=== PATIENT | female | born 1940 | race Caucasian/White ===

== ENCOUNTER 2017-05-28 19:05 | Inpatient (IN) | payer MEDICARE, OTHER ==
[~2017-05-28] VITALS: Ht 162.6 cm; Wt 68.5 kg
[~2017-05-28 19:05] MED LIST: ATRV10T PO; CLOP75TA PO; MECL-124 PO; SCOP1PAT TD; SCP1.5TD TD
--- NOTE | 2017-05-28 19:20 | ED Cough/URI ---
General Stated Complaint: R SIDE PAIN - KIDNEYS Source: patient Exam Limitations: no limitations History of Present Illness Date Seen by Provider: May 28, 2017 Time Seen by Provider: 19:17 Initial Comments To ER per private vehicle with reports of fever, urinary tract infection, right posterior chest pain. This began this morning. Temperature up to 101.9. She was seen at Dr. Thornton's clinic today for the fever. She was evaluated with urinalysis, lab work and a flu swab. States that the urinalysis showed sign of infection so she was started on Macrobid. She had a flu swab done which was negative. She reports a mild cough. Pain to the posterior right chest is worse with breathing but she does not feel short of breath. She denies any UTI symptoms such as urinary frequency or burning. Timing/Duration: constant Severity/Quality: moderate Associated Symptoms: fever/chills Allergies and Home Medications Allergies Coded Allergies: No Known Drug Allergies (Unverified , 07/26/09) Home Medications Atorvastatin Calcium 10 Mg Tablet, 0.5 EACH PO DAILY, (Reported) Clopidogrel Bisulfate 75 Mg Tablet, 1 EACH PO DAILY, (Reported) Scopolamine 1.5 Mg Patch, 1 EA TD Q72H, (Reported) Constitutional: see HPI, chills, fever EENTM: see HPI Respiratory: see HPI, cough (minor), No short of breath, other (pleurodynia) Genitourinary: no symptoms reported Musculoskeletal: no symptoms reported Skin: no symptoms reported Psychiatric/Neurological: No Symptoms Reported Hematologic/Lymphatic: No Symptoms Reported Past Aawzlde-Yzqjre-Oucpkz Hx Patient Social History Recent Foreign Travel: No Contact w/Someone Who Travel: No Immunizations Up To Date Date of Influenza Vaccine: Jan 11, 2011 Reproductive System Hx Reproductive Disorders: No Physical Exam Vital Signs Vital Signs - First Documented 05/28/17 19:09 Temp 96.8 Pulse 93 Resp 18 B/P (MAP) 115/62 (79) Pulse Ox 95 O2 Delivery Room Air Capillary Refill : General Appearance: WD/WN, no apparent distress, other (does appear to be having quite a bit of pain with inspiration) HEENT: PERRL/EOMI, normal ENT inspection Neck: non-tender, full range of motion Respiratory: lungs clear, no respiratory distress, no accessory muscle use, No wheezing Cardiovascular: regular rate, rhythm, no murmur Gastrointestinal: normal bowel sounds, non tender, soft Neurologic/Psychiatric: alert, normal mood/affect, oriented x 3 Skin: normal color, warm/dry Progress/Results/Core Measures Suspected Sepsis SIRS Temperature: Pulse: Respiratory Rate: Laboratory Tests 05/28/17 19:10: White Blood Count 14.8H Blood Pressure / Mean: Laboratory Tests 05/28/17 19:10: Creatinine 1.02, Platelet Count 178, Total Bilirubin 0.8 Results/Orders Lab Results Laboratory Tests Test 05/28/17 19:10 05/28/17 19:37 Range/Units White Blood Count 14.8 H 4.3-11.0 10^3/uL Red Blood Count 3.74 L 4.35-5.85 10^6/uL Hemoglobin 11.9 11.5-16.0 G/DL Hematocrit 35 35-52 % Mean Corpuscular Volume 93 80-99 FL Mean Corpuscular Hemoglobin 32 25-34 PG Mean Corpuscular Hemoglobin Concent 34 32-36 G/DL Red Cell Distribution Width 13.5 10.0-14.5 % Platelet Count 178 130-400 10^3/uL Mean Platelet Volume 10.9 H 7.4-10.4 FL Neutrophils (%) (Auto) 88 H 42-75 % Lymphocytes (%) (Auto) 5 L 12-44 % Monocytes (%) (Auto) 7 0-12 % Eosinophils (%) (Auto) 0 0-10 % Basophils (%) (Auto) 0 0-10 % Neutrophils # (Auto) 12.9 H 1.8-7.8 X 10^3 Lymphocytes # (Auto) 0.8 L 1.0-4.0 X 10^3 Monocytes # (Auto) 1.0 0.0-1.0 X 10^3 Eosinophils # (Auto) 0.0 0.0-0.3 10^3/uL Basophils # (Auto) 0.0 0.0-0.1 10^3/uL Neutrophils % (Manual) 88 % Lymphocytes % (Manual) 4 % Monocytes % (Manual) 4 % Eosinophils % (Manual) 0 % Basophils % (Manual) 0 % Band Neutrophils 4 % Blood Morphology Comment NORMAL Sodium Level 128 L 135-145 MMOL/L Potassium Level 4.3 3.6-5.0 MMOL/L Chloride Level 97 L 98-107 MMOL/L Carbon Dioxide Level 18 L 21-32 MMOL/L Anion Gap 13 5-14 MMOL/L Blood Urea Nitrogen 14 7-18 MG/DL Creatinine 1.02 0.60-1.30 MG/DL Estimat Glomerular Filtration Rate 53 BUN/Creatinine Ratio 14 Glucose Level 159 H 70-105 MG/DL Calcium Level 8.9 8.5-10.1 MG/DL Total Bilirubin 0.8 0.1-1.0 MG/DL Aspartate Amino Transf (AST/SGOT) 43 H 5-34 U/L Alanine Aminotransferase (ALT/SGPT) 50 0-55 U/L Alkaline Phosphatase 84 40-136 U/L Total Protein 6.7 6.4-8.2 GM/DL Albumin 3.6 3.2-4.5 GM/DL Urine Color YELLOW Urine Clarity CLEAR Urine pH 5 5-9 Urine Specific [place] 1.020 1.016-1.022 Urine Protein 3+ H NEGATIVE Urine Glucose (UA) NEGATIVE NEGATIVE Urine Ketones 2+ H NEGATIVE Urine Nitrite NEGATIVE NEGATIVE Urine Bilirubin NEGATIVE NEGATIVE Urine Urobilinogen NORMAL NORMAL MG/DL Urine Leukocyte Esterase 1+ H NEGATIVE Urine RBC (Auto) 1+ H NEGATIVE Urine RBC RARE /HPF Urine WBC 2-5 /HPF Urine Squamous Epithelial Cells 2-5 /HPF Urine Crystals NONE /LPF Urine Bacteria FEW H /HPF Urine Casts PRESENT /LPF Urine Coarse Granular Casts 10-25 H /LPF Urine Mucus NEGATIVE /LPF Urine Culture Indicated NO My Orders Orders - TOMASZ BROUSSARD APRN Cbc With Automated Diff (05/28/17 19:16) Comprehensive Metabolic Panel (05/28/17 19:16) Ua Culture If Indicated (05/28/17 19:16) Saline Lock/Iv-Start (05/28/17 19:16) Ns Iv 500 Ml (Sodium Chloride 0.9%) (05/28/17 19:30) Chest 1 View, Ap/Pa Only (05/28/17 19:21) Manual Differential (05/28/17 19:10) Iohexol Injection (Omnipaque 350 Mg/Ml 1 (05/28/17 20:00) Ns (Ivpb) (Sodium Chloride 0.9%) (05/28/17 20:00) Pharmacy Communication (Pharmacy Communi (05/28/17 19:49) Ct Kami Chest/Noang Abd-Pelv W (05/28/17 19:16) Blood Culture (05/28/17 20:15) Lactic Acid Analyzer (05/28/17 20:15) Ketorolac Injection (Toradol Injection) (05/28/17 20:30) Ketorolac Injection (Toradol Injection) (05/28/17 20:25) Medications Given in ED Current Medications Medications Dose Ordered Sig/Mark Route Start Time Stop Time Status Last Admin Dose Admin Iohexol 150 ml ONCE ONCE IV 05/28/17 20:00 05/28/17 20:01 DC 05/28/17 19:57 150 ML Sodium Chloride 250 ml ONCE ONCE IV 05/28/17 20:00 05/28/17 20:01 DC 05/28/17 19:58 80 ML Vital Signs/I&O Vital Sign - Last 12Hours 05/28/17 19:09 Temp 96.8 Pulse 93 Resp 18 B/P (MAP) 115/62 (79) Pulse Ox 95 O2 Delivery Room Air Capillary Refill : Departure Communication (Admissions) Time/Spoke to Admitting Phy: 20:34 Communication I discussed the case with Dr. Thornton. She agrees to admit the patient for IV fluids, Rocephin and Zithromax can be used given the absence of recent broad- spectrum antibiotic use Impression Impression: Primary Impression: Right lower lobe pneumonia Disposition: ADMITTED INPATIENT Condition: Stable Admissions Decision to Admit Reason: Admit from ER (General) Decision to Admit/Date: May 28, 2017 Time/Decision to Admit Time: 20:15 Departure-Patient Inst. Referrals: HERNAN THORNTON DO (PCP/Family) Primary Care Physician TOMASZ BROUSSARD APRN May 28, 2017 19:20
[2017-05-28 19:21] LABS: BASOPHILS % (AUTO) 0 % (0-10); EOSINOPHILS % (AUTO) 0 % (0-10); HEMATOCRIT 35 % (35-52); HEMOGLOBIN 11.9 G/DL (11.5-16.0); LYMPHOCYTES # (AUTO) 0.8 X 10^3 (1.0-4.0); LYMPHOCYTES % (AUTO) 5 % (12-44); MEAN CORPUSCULAR HEMOGLOBIN 32 PG (25-34); MEAN CORPUSCULAR HGB CONC 34 G/DL (32-36); MEAN CORPUSCULAR VOLUME 93 FL (80-99); MEAN PLATELET VOLUME 10.9 FL (7.4-10.4); MONOCYTES % (AUTO) 7 % (0-12); NEUTROPHILS # (AUTO) 12.9 X 10^3 (1.8-7.8); NEUTROPHILS % (AUTO) 88 % (42-75); PLATELET COUNT 178 10^3/uL (130-400); RED BLOOD COUNT 3.74 10^6/uL (4.35-5.85); RED CELL DISTRIBUTION WIDTH 13.5 % (10.0-14.5); WHITE BLOOD COUNT 14.8 10^3/uL (4.3-11.0)
[2017-05-28] MEDS ORDERED: NS IV 500 ML 500 ML IV SCH (19:30)
[2017-05-28 19:41] LABS: ALBUMIN 3.6 GM/DL (3.2-4.5); BILIRUBIN,TOTAL 0.8 MG/DL (0.1-1.0); CALCIUM 8.9 MG/DL (8.5-10.1); CREATININE SERUM 1.02 MG/DL (0.60-1.30); POTASSIUM 4.3 MMOL/L (3.6-5.0); TOTAL PROTEIN 6.7 GM/DL (6.4-8.2)
[2017-05-28 19:46] LABS: BILIRUBIN,URINE NEGATIVE (NEGATIVE); CLARITY,URINE CLEAR; COLOR,URINE YELLOW; GLUCOSE, URINE (UA) NEGATIVE (NEGATIVE); KETONES,URINE 2+ (NEGATIVE); LEUKOCYTE ESTERASE ,URINE 1+ (NEGATIVE); NITRITE,URINE NEGATIVE (NEGATIVE); PH,URINE 5 (5-9); PROTEIN,URINE 3+ (NEGATIVE); UROBILINOGEN,URINE NORMAL (NORMAL)
[2017-05-28 19:50] LABS: BAND NEUTROPHILS 4 %; BASOPHILS % (MANUAL) 0 %; EOSINOPHILS % (MANUAL) 0 %; LYMPHOCYTES % (MANUAL) 4 %; MONOCYTES % (MANUAL) 4 %; NEUTROPHILS % (MANUAL) 88 %; RBC MORPH NORMAL
[2017-05-28] MEDS ORDERED: IOHEXOL 350 MG/ML 150 ML (OMNIPAQUE 350) VIAL IV ONE (20:00)
[2017-05-28] MEDS ORDERED: NS 250 ML (IVPB) BAG IV ONE (20:00)
[2017-05-28 20:01] LABS: BACTERIA,URINE FEW /HPF; RBC,URINE RARE /HPF
--- NOTE | 2017-05-28 20:01 | Diagnostic Imaging Report ---
INDICATION: Fever COMPARISON: 10/17/2011 FINDINGS: Single frontal view of the chest is obtained. Heart size is normal. The pulmonary vessels appear unremarkable. There is moderate infiltrate in the medial right lower lobe. There may be a small right pleural effusion. The left lung appears clear. IMPRESSION: Right lower lobe pneumonia with possible small effusion. Short-term followup study is recommended to document resolution. Dictated by: Dictated on workstation # [id number]
--- NOTE | 2017-05-28 20:20 | Diagnostic Imaging Report ---
INDICATION: Fever. Right lower chest pain. Short of air. Abdominal pain Images through the chest and abdomen were obtained after the administration of IV contrast. 3-D reconstructions were made for the CT angiography of the chest. There is a consolidated infiltrate seen in the right upper lobe medially. The right lower lobe and the left lung are clear. There is no effusion or pneumothorax. There is no aortic dissection. There is no pulmonary embolus. The gallbladder is absent. The liver and bile ducts are normal. The spleen, pancreas and adrenals are normal. There is a 5.6 cm cyst on the right kidney. The left kidney is normal. The ureters and bladder are normal. No acute bowel abnormality is seen. There is no free intraperitoneal air or fluid. IMPRESSION: CT angiography of the chest shows a right lung infiltrate. Recommend followup for clearing. There is no pulmonary embolus. CT of the abdomen and pelvis shows no acute abnormality. Dictated by: Dictated on workstation # [id number]
[2017-05-28] MEDS ORDERED: KETOROLAC 30 MG/ML VIAL ONE (20:25)
[2017-05-28] MEDS ORDERED: KETOROLAC 30 MG/ML VIAL IVP ONE (20:30)
[2017-05-28] MEDS ORDERED: fentaNYL INJECTION 100 MCG/2 ML AMP IVP ONE (20:45)
[2017-05-28] MEDS ORDERED: cefTRIAXone INJECTION 1,000 MG in NS (IVPB) 50 ML IV ONE (20:45)
[2017-05-28] MEDS ORDERED: KETOROLAC 15 MG/ML VIAL IV PRN (22:00)
[2017-05-28] MEDS ORDERED: ONDANSETRON 4 MG/2 ML (SDV) Z0FRAN IV PRN (22:00)
[2017-05-28] MEDS: NS IV 1000 ML 1,000 ML IV SCH (22:14)
[2017-05-28] MEDS ORDERED: AZITHROMYCIN 500 MG/NS 250 ML IVPB IV ONE ×2 (22:15)
[2017-05-28] MEDS ORDERED: CATHETER FLUSH 10 ML SYR IV PRN (22:15)
[2017-05-28] MEDS ORDERED: RT-ALBUTEROL/IPRATROPIUM 3 ML (DUONEB) VIAL INH PRN (22:45)
[2017-05-29] VITALS: BP 106/54
[2017-05-29 04:00] VITALS: BP 115/63
[2017-05-29] MEDS: CATHETER FLUSH 10 ML SYR IV SCH ×3 (04:34→20:47)
[2017-05-29] MEDS: NS IV 1000 ML 1,000 ML IV SCH ×2 (06:21→07:45)
[2017-05-29 06:33] LABS: BASOPHILS % (AUTO) 0 % (0-10); EOSINOPHILS % (AUTO) 0 % (0-10); HEMATOCRIT 32 % (35-52); HEMOGLOBIN 10.5 G/DL (11.5-16.0); LYMPHOCYTES # (AUTO) 0.9 X 10^3 (1.0-4.0); LYMPHOCYTES % (AUTO) 7 % (12-44); MEAN CORPUSCULAR HEMOGLOBIN 31 PG (25-34); MEAN CORPUSCULAR HGB CONC 33 G/DL (32-36); MEAN CORPUSCULAR VOLUME 94 FL (80-99); MEAN PLATELET VOLUME 11.6 FL (7.4-10.4); MONOCYTES # (AUTO) 0.8 X 10^3 (0.0-1.0); MONOCYTES % (AUTO) 6 % (0-12); NEUTROPHILS # (AUTO) 11.1 X 10^3 (1.8-7.8); NEUTROPHILS % (AUTO) 86 % (42-75); PLATELET COUNT 157 10^3/uL (130-400); RED BLOOD COUNT 3.39 10^6/uL (4.35-5.85); RED CELL DISTRIBUTION WIDTH 13.7 % (10.0-14.5); WHITE BLOOD COUNT 12.8 10^3/uL (4.3-11.0)
[2017-05-29] MEDS: RT-ALBUTEROL/IPRATROPIUM 3 ML (DUONEB) VIAL INH SCH ×4 (06:41→19:29)
[2017-05-29 06:53] LABS: BUN/CREATININE RATIO 18; CALCIUM 8.2 MG/DL (8.5-10.1); CARBON DIOXIDE 22 MMOL/L (21-32); CHLORIDE 101 MMOL/L (98-107); CREATININE SERUM 0.82 MG/DL (0.60-1.30); GFR ESTIMATED > 60; GLUCOSE 92 MG/DL (70-105); POTASSIUM 3.8 MMOL/L (3.6-5.0); SODIUM 131 MMOL/L (135-145)
[2017-05-29 08:00] VITALS: BP 99/55
[2017-05-29] MEDS ORDERED: ASPI-808 PO (08:03)
[2017-05-29] MEDS ORDERED: CHOL10007 PO (08:03)
[2017-05-29] MEDS ORDERED: ATOR10TA66 PO (08:03)
[2017-05-29] MEDS ORDERED: OMEG-109 PO (08:03)
[2017-05-29] MEDS ORDERED: CALC-794 PO (08:03)
[2017-05-29] MEDS ORDERED: L. A1CAP11 PO (08:04)
[2017-05-29] MEDS: AZITHROMYCIN 250 MG TAB (ZITHROMAX) PO SCH (08:17)
[2017-05-29] MEDS ORDERED: CALC-697 PO (08:21)
[2017-05-29 12:00] VITALS: BP 101/54
--- NOTE | 2017-05-29 14:25 | History & Physicial ---
History of Present Illness History of Present Illness Reason for visit/HPI This is a 76 year old female who was seen at my office with fever and fatigue. She was also having some right flank pain. Influenza was negative. She was found to have a UTI and bloodwork revealed an elevated WBC count of 12,000. Her right sided flank pain worsened and was actually radiating to her right lower abdomen so she presented to the emergency room for evaluation. She was found to have a Right lower lobe infiltrate and it was decided to admit her for evaluation and treatment. Date of Admission May 28, 2017 at 20:32 Date Seen by Provider: May 29, 2017 Time Seen by Provider: 14:20 I consulted on this patient on 05/29/17 14:20 Attending Physician Emily Thornton DO Admitting Physician Emily Thornton DO Consult Allergies and Home Medications Allergies Coded Allergies: No Known Drug Allergies (Unverified , 07/26/09) Home Medications Aspirin 325 Mg Tablet, 325 MG PO DAILY, (Reported) Atorvastatin Calcium 10 Mg Tablet, 5 MG PO DAILY, (Reported) TAKES 1/2 (10MG) TABLET Calcium Carbonate/Vitamin D3 1 Each Tablet, 1 TAB PO DAILY, (Reported) Cholecalciferol (Vitamin D3) 1,000 Unit Capsule, 1,000 UNIT PO MoWeFr, (Reported ) L. Acidophilus/Pectin, [place] 1 Each Capsule, 1 CAP PO DAILY, (Reported) [place]-3 Fatty Acids/Fish Oil 1 Each Capsule, 2,400 MG PO DAILY, (Reported) Past Brlczbn-Nhftlk-Aumkho Hx Patient Social History Alcohol Use: Denies Use Recreational Drug Use: No Smoking Status: Never a Smoker Physical Abuse Screen: No Sexual Abuse: No Recent Foreign Travel: No Contact w/other who traveled: No Recent Hopitalizations: No Recent Infectious Disease Expo: No Immunizations Up To Date Pediatric: No Date of Pneumonia Vaccine: Jan 14, 2016 Date of Influenza Vaccine: Jan 12, 2017 Seasonal Allergies Seasonal Allergies: No Surgeries Yes Eye Surgery, Tubal Ligation Respiratory No Cardiovascular No Neurological No Reproductive System Hx Reproductive Disorders: No Genitourinary Yes UTI-Chronic Gastrointestinal Yes Gall Bladder Disease Musculoskeletal No Endocrine History of Endocrine Disorders: No HEENT History of HEENT Disorders: Yes HEENT Disorders: Cataract Loss of Vision: Bilateral Hearing Impairment: Denies Cancer No Psychosocial History of Psychiatric Problem: No Integumentary History of Skin or Integumenta: No Blood Transfusions History of Blood Disorders: No Adverse Reaction to a Blood Tr: No Family Medical History Family Hx: Patient reports no known family medical history. Constitutional: fever, weakness EENTM: nose congestion Respiratory: No no symptoms reported, No see HPI, No cough, No dyspnea on exertion, No hemoptysis, No orthopnea, No phlegm, No short of breath, No stridor , No wheezing, No other Cardiovascular: No no symptoms reported, No see HPI, No chest pain, No edema, No Hx of Intervention, No palpitations, No syncope, No vascular heart diseas, No other Gastrointestinal: RUQ (and flank), RLQ Musculoskeletal: back pain (right flank area), muscle weakness Skin: No no symptoms reported, No see HPI, No change in color, No change in hair/nails, No dryness, No hx of skin cancer, No lesions, No lumps, No pruritus , No rash, No other Psychiatric/Neurological: Weakness Physical Exam Vital Signs Vital Signs - First Documented 05/28/17 05/28/17 19:09 21:12 Temp 96.8 Pulse 93 Resp 18 B/P (MAP) 115/62 (79) Pulse Ox 95 O2 Delivery Room Air O2 Flow Rate 2.00 Capillary Refill : Less Than 3 Seconds General Appearance: No Apparent Distress HEENT: Normal ENT Inspection Neck: Supple Respiratory: Lungs Clear Cardiovascular: Regular Rate, Rhythm Gastrointestinal: Normal Bowel Sounds, Non Tender, Soft Rectal: Deferred Back: No CVA Tenderness Extremity: Non Tender, No Calf Tenderness, No Pedal Edema Neurologic/Psychiatric: Alert, Oriented x3 Skin: Normal Color, Warm/Dry Comments labLaboratory Tests 05/28/17 19:10: White Blood Count 14.8H, Red Blood Count 3.74L, Hemoglobin 11.9, Hematocrit 35, Mean Corpuscular Volume 93, Mean Corpuscular Hemoglobin 32, Mean Corpuscular Hemoglobin Concent 34, Red Cell Distribution Width 13.5, Platelet Count 178, Mean Platelet Volume 10.9H, Neutrophils (%) (Auto) 88H, Lymphocytes (%) (Auto) 5L, Monocytes (%) (Auto) 7, Eosinophils (%) (Auto) 0, Basophils (%) (Auto) 0, Neutrophils # (Auto) 12.9H, Lymphocytes # (Auto) 0.8L, Monocytes # (Auto) 1.0, Eosinophils # (Auto) 0.0, Basophils # (Auto) 0.0, Neutrophils % (Manual) 88, Lymphocytes % (Manual) 4, Monocytes % (Manual) 4, Eosinophils % (Manual) 0, Basophils % (Manual) 0, Band Neutrophils 4, Blood Morphology Comment NORMAL, Sodium Level 128L, Potassium Level 4.3, Chloride Level 97L, Carbon Dioxide Level 18L, Anion Gap 13, Blood Urea Nitrogen 14, Creatinine 1.02, Estimat Glomerular Filtration Rate 53, BUN/Creatinine Ratio 14, Glucose Level 159H, Calcium Level 8.9, Total Bilirubin 0.8, Aspartate Amino Transf (AST/SGOT) 43H, Alanine Aminotransferase (ALT/SGPT) 50, Alkaline Phosphatase 84, Total Protein 6.7, Albumin 3.6 05/28/17 19:37: Urine Color YELLOW, Urine Clarity CLEAR, Urine pH 5, Urine Specific [place] 1.020, Urine Protein 3+H, Urine Glucose (UA) NEGATIVE, Urine Ketones 2+H, Urine Nitrite NEGATIVE, Urine Bilirubin NEGATIVE, Urine Urobilinogen NORMAL, Urine Leukocyte Esterase 1+H, Urine RBC (Auto) 1+H, Urine RBC RARE, Urine WBC 2-5, Urine Squamous Epithelial Cells 2-5, Urine Crystals NONE, Urine Bacteria FEWH, Urine Casts PRESENT, Urine Coarse Granular Casts 10-25H, Urine Mucus NEGATIVE, Urine Culture Indicated NO 05/28/17 20:41: Lactic Acid Level 1.69 05/29/17 05:19: White Blood Count 12.8H, Red Blood Count 3.39L, Hemoglobin 10.5L, Hematocrit 32L , Mean Corpuscular Volume 94, Mean Corpuscular Hemoglobin 31, Mean Corpuscular Hemoglobin Concent 33, Red Cell Distribution Width 13.7, Platelet Count 157, Mean Platelet Volume 11.6H, Neutrophils (%) (Auto) 86H, Lymphocytes (%) (Auto) 7L, Monocytes (%) (Auto) 6, Eosinophils (%) (Auto) 0, Basophils (%) (Auto) 0, Neutrophils # (Auto) 11.1H, Lymphocytes # (Auto) 0.9L, Monocytes # (Auto) 0.8, Eosinophils # (Auto) 0.0, Basophils # (Auto) 0.0, Sodium Level 131L, Potassium Level 3.8, Chloride Level 101, Carbon Dioxide Level 22, Anion Gap 8, Blood Urea Nitrogen 15, Creatinine 0.82, Estimat Glomerular Filtration Rate > 60, BUN/ Creatinine Ratio 18, Glucose Level 92, Calcium Level 8.2L Microbiology 05/28/17 Blood Culture - Preliminary, Resulted Probable Strep Pneumoniae Assessment/Plan Assessment and Plan 1. Acute RLL Bacterial Pneumonia--will admit for IV rocephin, zithromax, SVNs 2. Acute UTI--rocephin as above Problems: Clinical Quality Measures DVT/VTE Risk/Contraindication: Risk Factor Score Per Nursin RFS Level Per Nursing on Admit: 3=High EMILY THORNTON DO May 29, 2017 14:25
[2017-05-29] MEDS ORDERED: FUROSEMIDE 40 MG/4 ML INJ (LASIX) IVP NR (14:30)
[2017-05-29] MEDS ORDERED: KCL 8 MEQ (MICRO K) TABLET PO NR (14:30)
--- OUTSIDE RECORDS SUMMARY | 2017-05-29 16:08 | XMS REPORT | Continuity of Care Document ---
Author Author [facility] Organization [facility] Address Unknown Phone Unavailable Allergies Active Description Code Type Severity Reaction Onset Reported/Identified Relationship to Patient Clinical Status Yes No Known Drug Allergies [id number] Drug Allergy Mild N/A 07/26/2009 Medications There is no data. Problems Date Dx Coded Attending Type Code Diagnosis Diagnosed By 09/09/2014 HERNAN FOREMAN DO Ot V76.12 11/23/2014 HERNAN FOREMAN DO S Ot 433.10 11/23/2014 HERNAN FOREMAN DO S Ot 433.30 12/26/2014 HERNAN FOREMAN DO S Ot 433.10 12/26/2014 HERNAN FOREMAN DO S Ot 433.30 07/19/2015 Ot G45.9 07/19/2015 Ot R42 08/03/2015 Ot G45.9 TRANSIENT CEREBRAL ISCHEMIC ATTACK, UNSP 08/03/2015 Ot R42 DIZZINESS AND GIDDINESS 08/29/2015 HERNAN FOREMAN DO Ot Z12.31 ENCNTR SCREEN MAMMOGRAM FOR MALIGNANT NE Procedures There is no data. Results There is no data. Encounters ACCT No. Visit Date/Time Discharge Status Pt. Type Provider Facility Loc./Unit Complaint [id number] 08/07/2015 08:52:00 08/07/2015 23:59:59 CLS Outpatient HERNAN FOREMAN DO S [facility] [id number] 10/31/2014 08:54:00 10/31/2014 23:59:59 CLS Outpatient CLAYTON FOREMAN DOLINE S [facility] [id number] 08/03/2014 10:20:00 08/03/2014 23:59:59 CLS Outpatient CLAYTON FOREMAN DOLINE S [facility] [id number] 10/27/2013 13:14:00 10/27/2013 23:59:59 CLS Outpatient [id number] 08/04/2013 08:21:00 08/04/2013 23:59:59 CLS Outpatient [id number] 07/27/2013 13:18:00 07/27/2013 23:59:59 CLS Outpatient [id number] 02/24/2013 13:17:00 02/24/2013 23:59:59 CLS Outpatient [id number] 10/26/2012 10:33:00 10/26/2012 23:59:59 CLS Outpatient [id number] 08/17/2012 08:04:00 08/17/2012 23:59:59 CLS Outpatient [id number] 07/13/2015 09:42:00 Document Registration
[2017-05-29] MEDS: HYDROcodone/APAP 5 MG/325 MG (LORTAB) TAB PO PRN ×2 (16:37→20:47)
[2017-05-29 16:46] VITALS: BP 112/56
[2017-05-29 19:08] VITALS: BP 93/53
[2017-05-29] MEDS: cefTRIAXone 1 GM/NS 50 ML IVPB IV SCH ×2 (20:00)
[2017-05-30 00:23] VITALS: BP 102/52
[2017-05-30 04:53] VITALS: BP 107/51
[2017-05-30] MEDS: CATHETER FLUSH 10 ML SYR IV SCH ×3 (05:24→20:27)
[2017-05-30 05:32] LABS: BASOPHILS % (AUTO) 0 % (0-10); EOSINOPHILS # (AUTO) 0.1 10^3/uL (0.0-0.3); EOSINOPHILS % (AUTO) 2 % (0-10); HEMATOCRIT 29 % (35-52); HEMOGLOBIN 9.7 G/DL (11.5-16.0); LYMPHOCYTES # (AUTO) 1.1 X 10^3 (1.0-4.0); LYMPHOCYTES % (AUTO) 13 % (12-44); MEAN CORPUSCULAR HEMOGLOBIN 31 PG (25-34); MEAN CORPUSCULAR HGB CONC 33 G/DL (32-36); MEAN CORPUSCULAR VOLUME 92 FL (80-99); MEAN PLATELET VOLUME 10.9 FL (7.4-10.4); MONOCYTES # (AUTO) 0.7 X 10^3 (0.0-1.0); MONOCYTES % (AUTO) 9 % (0-12); NEUTROPHILS # (AUTO) 6.1 X 10^3 (1.8-7.8); NEUTROPHILS % (AUTO) 76 % (42-75); PLATELET COUNT 196 10^3/uL (130-400); RED BLOOD COUNT 3.14 10^6/uL (4.35-5.85); RED CELL DISTRIBUTION WIDTH 13.7 % (10.0-14.5)
[2017-05-30 05:58] LABS: ALANINE AMINOTRANSFERASE 60 U/L (0-55); ALKALINE PHOSPHATASE 79 U/L (40-136); BILIRUBIN,TOTAL 0.4 MG/DL (0.1-1.0); BUN/CREATININE RATIO 14; CARBON DIOXIDE 19 MMOL/L (21-32); CHLORIDE 101 MMOL/L (98-107); CREATININE SERUM 0.77 MG/DL (0.60-1.30); GFR ESTIMATED > 60; GLUCOSE 97 MG/DL (70-105); SODIUM 131 MMOL/L (135-145); TOTAL PROTEIN 5.3 GM/DL (6.4-8.2)
[2017-05-30] MEDS: AZITHROMYCIN 250 MG TAB (ZITHROMAX) PO SCH (08:05)
[2017-05-30 08:21] VITALS: BP 122/58
[2017-05-30] MEDS: RT-ALBUTEROL/IPRATROPIUM 3 ML (DUONEB) VIAL INH SCH ×4 (09:49→19:13)
--- NOTE | 2017-05-30 10:00 | Progress Note-Hospitalist ---
Subjective HPI/CC On Admission Date Seen by Provider: May 30, 2017 Time Seen by Provider: 08:30 Subjective/Events-last exam Patient complains of right-sided pain that's down near her pelvis that radiates up to the right shoulder. It is positional and she has concerns that this might be related to a right renal cyst that was found incidentally on CT. She notes that it improved when she put a towel underneath her lower back. I discussed with her that her blood cultures did come up positive for Streptococcus probable pneumonia. She is on day 2 Rocephin and Zithromax. Review of Systems Pulmonary: Cough Musculoskeletal: back pain Objective Exam Vital Signs Vital Signs Date Time Temp Pulse Resp B/P (MAP) Pulse Ox O2 Delivery O2 Flow Rate FiO2 05/28/17 19:09 96.8 93 18 115/62 (79) 95 Room Air 05/28/17 21:12 2.00 Capillary Refill : Less Than 3 Seconds General Appearance: No Apparent Distress, WD/WN HEENT: Normal ENT Inspection Neck: Supple Respiratory: Chest Non Tender, No Accessory Muscle Use, No Respiratory Distress , Crackles (Right lung) Cardiovascular: Regular Rate, Rhythm, No Gallop, No Murmur, Normal Peripheral Pulses Gastrointestinal: Normal Bowel Sounds, No Organomegaly, No Pulsatile Mass, Non Tender, Soft Rectal: Deferred Back: Normal Inspection, No CVA Tenderness, No Vertebral Tenderness Extremity: No Calf Tenderness, No Pedal Edema Neurologic/Psychiatric: Alert, Oriented x3, No Motor/Sensory Deficits Skin: Normal Color, Warm/Dry Lymphatic: No Adenopathy Results/Procedures Lab Laboratory Tests 05/30/17 05:25 Assessment/Plan Assessment and Plan Assess & Plan/Chief Complaint 1. Right upper lobe pneumonia on CT-most likely Streptococcus pneumonia with positive blood cultures day number 2 Zithromax and Rocephin 2. Right sided back discomfort most likely musculoskeletal. On exam it is where the upper rib cage is rubbing on the posterior superior iliac crest of the pelvis 3. Incidental 5.6 cm right renal cyst 4. Mild anemia with a hemoglobin of 9.7 of uncertain etiology we'll Hemoccult stools CHANTELLE LLANES MD May 30, 2017 10:00
[2017-05-30] MEDS: ACETAMINOPHEN 500 MG TAB (TYLENOL) PO PRN (10:46)
[2017-05-30 12:00] VITALS: BP 102/50
[2017-05-30 16:59] VITALS: BP 116/58
[2017-05-30] MEDS: ACETAMINOPHEN 325 MG TABLET/CAPLET (TYLENOL) PO PRN (20:21)
[2017-05-30] MEDS: cefTRIAXone 1 GM/NS 50 ML IVPB IV SCH ×2 (20:21)
[2017-05-30] MEDS: ATORVASTATIN 10 MG (LIPITOR) TABLET PO SCH (20:21)
[2017-05-31] VITALS: BP 101/54
[2017-05-31] MEDS: CATHETER FLUSH 10 ML SYR IV SCH ×3 (06:11→21:56)
[2017-05-31] MEDS: RT-ALBUTEROL/IPRATROPIUM 3 ML (DUONEB) VIAL INH SCH ×3 (07:45→18:34)
[2017-05-31 07:54] VITALS: BP 101/54
[2017-05-31] MEDS: AZITHROMYCIN 250 MG TAB (ZITHROMAX) PO SCH (07:56)
[2017-05-31] MEDS: ASPIRIN 325 MG (5 GR) TABLET PO SCH (07:56)
[2017-05-31 08:10] VITALS: BP 138/65
--- NOTE | 2017-05-31 10:27 | Progress Note-Hospitalist ---
Subjective HPI/CC On Admission Date Seen by Provider: May 31, 2017 Time Seen by Provider: 10:00 Subjective/Events-last exam Zara continues to have some right lower back pain when she lays down flat. Otherwise she seems to be looking and feeling better. She had a low-grade temperature of 99 last night. She has a cough that is not productive. Review of Systems Pulmonary: Cough Musculoskeletal: back pain Objective Exam Vital Signs Vital Signs Date Time Temp Pulse Resp B/P (MAP) Pulse Ox O2 Delivery O2 Flow Rate FiO2 05/28/17 19:09 96.8 93 18 115/62 (79) 95 Room Air 05/28/17 21:12 2.00 05/31/17 07:54 21 Capillary Refill : Less Than 3 Seconds General Appearance: No Apparent Distress, WD/WN HEENT: Normal ENT Inspection Neck: Supple Respiratory: No Accessory Muscle Use, No Respiratory Distress, Crackles (Right lower base) Cardiovascular: Regular Rate, Rhythm, No Gallop Gastrointestinal: Non Tender, Soft Back: No CVA Tenderness Extremity: No Calf Tenderness Neurologic/Psychiatric: Alert, Oriented x3, No Motor/Sensory Deficits, Normal Mood/Affect Assessment/Plan Assessment and Plan Assess & Plan/Chief Complaint 1. Right upper lobe pneumonia on CT-most likely Streptococcus pneumonia with positive blood cultures day number 3 Zithromax and Rocephin-most likely can be discharged tomorrow 2. Right sided back discomfort most likely musculoskeletal. On exam it is where the upper rib cage is rubbing on the posterior superior iliac crest of the pelvis 3. Incidental 5.6 cm right renal cyst 4. Mild anemia with a hemoglobin of 9.7 of uncertain etiology we'll Hemoccult stools CHANTELLE LLANES MD May 31, 2017 10:27
[2017-05-31] MEDS: ACETAMINOPHEN 500 MG TAB (TYLENOL) PO PRN (14:47)
[2017-05-31 15:24] VITALS: BP 103/54
[2017-05-31 19:09] VITALS: BP 112/56
[2017-05-31] MEDS: cefTRIAXone 1 GM/NS 50 ML IVPB IV SCH ×2 (19:54)
[2017-05-31] MEDS: ACETAMINOPHEN 325 MG TABLET/CAPLET (TYLENOL) PO PRN (21:56)
[2017-05-31] MEDS: ATORVASTATIN 10 MG (LIPITOR) TABLET PO SCH (21:56)
[2017-06-01 00:17] VITALS: BP 107/54
[2017-06-01 04:11] VITALS: BP 98/64
[2017-06-01] MEDS: CATHETER FLUSH 10 ML SYR IV SCH ×2 (05:53→13:09)
[2017-06-01 08:21] VITALS: BP 143/67
[2017-06-01] MEDS: AZITHROMYCIN 250 MG TAB (ZITHROMAX) PO SCH (08:39)
[2017-06-01] MEDS: ASPIRIN 325 MG (5 GR) TABLET PO SCH (08:40)
[2017-06-01] MEDS: RT-ALBUTEROL/IPRATROPIUM 3 ML (DUONEB) VIAL INH SCH (09:28)
[2017-06-01] MEDS ORDERED: CEFD300C3 PO (12:46)
[2017-06-01] MEDS ORDERED: IPRA3AMP INH (12:46)
--- NOTE | 2017-06-01 12:50 | Discharge Inst-Simple/Standard ---
Discharge Inst-Standard Discharge Medications New, Converted or Re-Newed RX: Transmitted to Pharmacy Patient Instructions/Follow Up Plan of Care/Instructions/FU: Fwup 1 week Activity as Tolerated: Yes Discharge Diet: No Restrictions HERNAN FOREMAN DO Jun 01, 2017 12:50 pm
[2017-06-01] MEDS: ACETAMINOPHEN 500 MG TAB (TYLENOL) PO PRN (14:27)
--- NOTE | 2017-06-01 19:48 | Discharge Summary ---
Diagnosis/Chief Complaint Date of Admission May 28, 2017 at 20:32 Date of Discharge Jun 01, 2017 at 14:50 Discharge Date: Jun 01, 2017 Admission Diagnosis Admission Diagnosis 1. Acute RLL Bacterial Pneumonia--will admit for IV rocephin, zithromax, SVNs 2. Acute UTI--rocephin as above Discharge Diagnosis 1. Acute RLL Streptococcal pneumonia with SIRS and Hypoxia--improved 2. Acute UTI 3. Acute Dehydration with Hyponatremia 4. Acute Anemia Reason Hospital Visit This is a 76 year old female who was seen at my office with fever and fatigue. She was also having some right flank pain. Influenza was negative. She was found to have a UTI and bloodwork revealed an elevated WBC count of 12,000. Her right sided flank pain worsened and was actually radiating to her right lower abdomen so she presented to the emergency room for evaluation. She was found to have a Right lower lobe infiltrate and it was decided to admit her for evaluation and treatment. Discharge Summary Hospital Course Hospital Course This is a 76 year old female who was seen at my office with fever and fatigue. She was also having some right flank pain. Influenza was negative. She was found to have a UTI and bloodwork revealed an elevated WBC count of 12,000. Her right sided flank pain worsened and was actually radiating to her right lower abdomen so she presented to the emergency room for evaluation. She was found to have a Right lower lobe infiltrate and it was decided to admit her for evaluation and treatment. She was admitted and started on rocephin, nebulizer treatments and oxygen. She was also given IVFs but felt more swollen and short of air the day after admission so the IVFs were heplocked and she was given IV lasix. Her blood cultures did grow out Steptococcal pneumonia. Her WBC count did come back to normal by the time of discharge and her energy and fever were much improved by discharge. She had no crackles on physical exam and her appetite was good and she had decreased her nebulizer treatments to BID. It was decided she could be discharged home on oral antibiotics with breathing treatments and acapella. She will follow up with me in 1 week. Labs Laboratory Tests 05/30/17 05:25: Red Blood Count 3.14L, Hemoglobin 9.7L, Hematocrit 29L, Mean Platelet Volume 10.9H, Neutrophils (%) (Auto) 76H, Sodium Level 131L, Carbon Dioxide Level 19L, Calcium Level 8.0L, Aspartate Amino Transf (AST/SGOT) 57H, Alanine Aminotransferase (ALT/SGPT) 60H, Total Protein 5.3L, Albumin 3.0L 05/31/17 07:20: Procedures None. Discharge Physical Examination Allergies: Coded Allergies: No Known Drug Allergies (Unverified , 07/26/09) Vitals & I&Os Vital Signs Date Time Temp Pulse Resp B/P (MAP) Pulse Ox O2 Delivery O2 Flow Rate FiO2 06/01/17 14:50 06/01/17 09:28 95 Room Air 06/01/17 08:21 99.8 77 18 05/31/17 07:54 21 05/30/17 04:53 2.00 General Appearance: Alert, Oriented X3, Cooperative Respiratory: Clear to Auscultation Cardiovascular: Regular Rate Abdominal: Normal Bowel Sounds, Soft, No Tenderness Extremities: No Clubbing, No Cyanosis, No Edema Skin: No Rashes Neuro: Normal Gait, Normal Speech Discharge Home Medications Reviewed and agree with Discharge Medication list on patient's Discharge Instruction sheet Instructions to Patient/Family Please see electronic discharge instructions given to patient. Clinical Quality Measures DVT/VTE Risk/Contraindication: Risk Factor Score Per Nursin RFS Level Per Nursing on Admit: 3=High HERNAN FOREMAN DO Jun 01, 2017 19:48
== END 2017-06-01 14:50 | disposition home or self-care (01) | DRG 194 ==
LOC: EDUNIT# 19:05 → ER 19:07 → 4TH 20:32
PROVIDERS: ADMIT Family Medicine; ATTEND Family Medicine
DX: J13 Pneumonia due to Streptococcus pneumoniae (principal); N39.0 Urinary tract infection, site not specified; R09.02 Hypoxemia; M54.9 Dorsalgia, unspecified; D64.9 Anemia, unspecified; E86.0 Dehydration; E87.1 Hypo-osmolality and hyponatremia
CPT/HCPCS: 36415; 71045; 71275; 74177; 80048; 80053; 81000; 82274; 83605; 85007; 85025; 85027; 87040; 94640; 94664; 94760; 96374; 96375

== ENCOUNTER → 2017-06-04 | Outpatient (CLI) | payer MEDICARE, OTHER ==
[~2017-06-04] MED LIST changes: +ASPI-808 PO; +ATOR10TA66 PO; +CALC-697 PO; +CALC-794 PO; +CEFD300C3 PO; +CHOL10007 PO; +IPRA3AMP INH; +L. A1CAP11 PO; +OMEG-109 PO
--- NOTE | 2017-06-04 12:18 | Diagnostic Imaging Report ---
INDICATION: Back pain. Three views of thoracic spine were obtained. FINDINGS: There is a right basal infiltrate and right pleural effusion. The alignment of the thoracic spine is normal. Vertebral body heights are well maintained. No fracture or traumatic subluxation. There are mild degenerative changes. IMPRESSION: Osteopenia and mild thoracic spondylosis otherwise unremarkable thoracic spine. Right base infiltrate and right pleural effusion. Dictated by: Dictated on workstation # [id number]
--- NOTE | 2017-06-04 13:22 | Diagnostic Imaging Report ---
INDICATION: Back pain. Three views were obtained. FINDINGS: Bones are osteopenic. Alignment is normal. Vertebral body heights are well maintained. There is some mild lower lumbar degenerative disc disease and hypertrophic degenerative facet disease. There is no spondylolysis or spondylolisthesis. No fractures are identified. IMPRESSION: Osteopenia with mild lower lumbar degenerative disc disease and hypertrophic degenerative facet disease. Dictated by: Dictated on workstation # [id number]
== END ==
LOC: RAD 11:42
PROVIDERS: ATTEND Family Medicine
DX: M51.36 Other intervertebral disc degeneration, lumbar region (principal); M47.814 Spondylosis without myelopathy or radiculopathy, thoracic region; M85.88 Other specified disorders of bone density and structure, other site; M89.38 Hypertrophy of bone, other site; J90 Pleural effusion, not elsewhere classified; R91.8 Other nonspecific abnormal finding of lung field
CPT/HCPCS: 72070; 72100

== ENCOUNTER → 2017-06-09 | Outpatient (CLI) | payer MEDICARE, OTHER ==
--- NOTE | 2017-06-09 19:02 | Diagnostic Imaging Report ---
INDICATION: Right flank pain. EXAM: Bilateral renal sonography is performed in the routine fashion. FINDINGS: The right kidney measures 12.3 x 4.5 x 4.9 cm. The left kidney measures 8.9 x 4.4 x 3.8 cm. There is a large cyst in the inferior pole of the right kidney, measuring 4.5 x 4.4 x 4.1 cm. This appears slightly larger than it did in 2010 where it measured 4.1 x 3.8 x 4.0 cm. The left kidney shows no focal lesion. There is no hydronephrosis on either side. Urinary bladder is grossly unremarkable with bilateral ureteral jets. IMPRESSION: Prominent cyst in the lower pole of the right kidney, slightly larger than the previous study of 07/27/2009. Otherwise unremarkable study. Dictated by: Dictated on workstation # [id number]
== END ==
LOC: RAD 10:47
PROVIDERS: ATTEND Family Medicine
DX: N28.1 Cyst of kidney, acquired (principal)
CPT/HCPCS: 76770

== ENCOUNTER → 2017-06-30 | Outpatient (CLI) | payer MEDICARE, OTHER ==
--- NOTE | 2017-06-30 15:51 | Diagnostic Imaging Report ---
EXAMINATION: PA and lateral chest at 10:29 a.m. INDICATION: Fever. FINDINGS: The prior chest exam of 05/28/2017 noted right lower lobe pneumonia/atelectasis with a small right pleural effusion. In the interval since the prior exam, the right lung base has been completely opacified by atelectasis/pneumonia and fluid. The right mid lung and right upper lung remain clear as does the left lung. There is still scar formation involving the right apex. The heart is stable in size. The mediastinum is not widened. The osseous structures are intact. IMPRESSION: 1. The appearance of the chest has worsened since the prior exam as the right lung base is now opacified by atelectasis/infiltrate and fluid. 2. There is no clear evidence for a neoplastic mass to account for the right lower lobe pneumonia/atelectasis and fluid. However, CT of the chest should be considered for further evaluation. Dictated by: Dictated on workstation # [id number]
== END ==
LOC: RAD 10:02
PROVIDERS: ATTEND Family Medicine
DX: J18.9 Pneumonia, unspecified organism (principal); R91.8 Other nonspecific abnormal finding of lung field
CPT/HCPCS: 71046

== ENCOUNTER → 2017-07-06 | Outpatient (CLI) | payer MEDICARE, OTHER ==
--- NOTE | 2017-07-06 12:35 | Diagnostic Imaging Report ---
PROCEDURE: CT chest without contrast. TECHNIQUE: Multiple contiguous axial images were obtained through the chest without the use of intravenous contrast. INDICATION: Cough and right-sided pneumonia, followup. Comparison is made with prior CT chest from 05/28/2017. No axillary lymphadenopathy is seen. Hilar and mediastinal evaluation is limited without intravenous contrast. No gross abnormality is seen. No pericardial fluid is identified. Patient has developed a moderate right-sided pleural effusion layering dependently posteriorly to a thickness of 2.6 cm. There has been significant improvement in the infiltrate identified in the medial aspect of the right upper lobe on prior exam. Only mild residual infiltrate remains. There appears to be some mild infiltrate or atelectasis in the right lower lobe with air bronchograms. Left lung is clear. The upper abdomen is unremarkable. IMPRESSION: 1. Significant improvement in right upper lobe pneumonia when compared with prior study from 05/28/2017. Mild infiltrate remains. The patient has developed some consolidative infiltrate in the right lower lobe since prior study. In addition, the patient has developed a moderate sized right pleural effusion. Continued followup to confirm clearing is recommended. Dictated by: Dictated on workstation # [id number]
== END ==
LOC: RAD 11:43
PROVIDERS: ATTEND Family Medicine
DX: J18.9 Pneumonia, unspecified organism (principal)
CPT/HCPCS: 71250

== ENCOUNTER → 2017-09-03 | Outpatient (CLI) | payer MEDICARE, OTHER ==
[2017-09-03] VITALS (10 sets, daily range): BP systolic 104–146; BP diastolic 53–79
[~2017-09-03] VITALS: Ht 162.6 cm; Wt 64.4 kg
[~2017-09-03] MED LIST changes: +LIDOCAINE 2% VISCOUS 15 ML UDC ONE; +LIDOCAINE 2% VISCOUS 15 ML UDC PO ONE; +MIDAZOLAM 5 MG/5 ML (VERSED) VIAL IV PRN; +MIDAZOLAM 5 MG/5 ML (VERSED) VIAL ONE; +MULT-351 PO; +NS IV 1000 ML 1,000 ML IV SCH; +NS IV 1000 ML 1,000 ML ONE; +fentaNYL INJECTION 100 MCG/2 ML AMP INJ PRN; +fentaNYL INJECTION 100 MCG/2 ML AMP ONE; +proPOfol 200 MG/20 ML (DIPRIVAN) VIAL IV ONE
[2017-09-03 08:01] LABS: HEMOGLOBIN 13.1 G/DL (11.5-16.0); MEAN PLATELET VOLUME 10.2 FL (7.4-10.4); RED BLOOD COUNT 4.27 10^6/uL (4.35-5.85); RED CELL DISTRIBUTION WIDTH 13.8 % (10.0-14.5); WHITE BLOOD COUNT 3.9 10^3/uL (4.3-11.0)
[2017-09-03 08:18] LABS: ALANINE AMINOTRANSFERASE 18 U/L (0-55); ALBUMIN 4.2 GM/DL (3.2-4.5); ALKALINE PHOSPHATASE 79 U/L (40-136); BILIRUBIN,TOTAL 0.7 MG/DL (0.1-1.0); BUN/CREATININE RATIO 20; CALCIUM 9.4 MG/DL (8.5-10.1); CARBON DIOXIDE 26 MMOL/L (21-32); CHLORIDE 105 MMOL/L (98-107); CREATININE SERUM 0.81 MG/DL (0.60-1.30); GFR ESTIMATED > 60; GLUCOSE 88 MG/DL (70-105); POTASSIUM 4.2 MMOL/L (3.6-5.0); SODIUM 140 MMOL/L (135-145)
[2017-09-03 08:51] LABS: PROTHROMBIN TIME PATIENT 13.1 SEC (12.2-14.7)
--- NOTE | 2017-09-03 10:30 | Anesthesia-General Post-Op ---
MAC Patient Condition Mental Status/LOC: Same as Preop Cardiovascular: Satisfactory Nausea/Vomiting: Absent Respiratory: Satisfactory Pain: Controlled Complications: Absent Post Op Complications Complications None Follow Up Care/Instructions Patient Instructions None needed. Anesthesiology Discharge Order Discharge Order Patient is doing well, no complaints, stable vital signs, no apparent adverse anesthesia problems. YESENIA FLOYD DO September 03, 2017 10:30
--- NOTE | 2017-09-03 10:30 | Anesthesia-Procedure Note ---
Procedures/Interventions Procedure Start/Stop/Diagnosis Date of Procedure: September 03, 2017 Start Time: 10:10 Referring Physician: Dr Delgado Preprocedural Diagnosis: Mitral Regurgitation Brief History Anesthesia Note ([id number]) Called to label coder for rescue sedation for JENISE. Pt already given versed 5 mg IV and Fentanyl 75 mcg IV prior to my arrival. Pt not sedated enough to get JENISE probe down the esophagus. We gave an additional 100 mg of propofol IV in divided doses. Again, Dr. Delgado was unable to easily pass the JENISE probe. After multiple attempts, Dr Delgado decided to stop the procedure. Pt was stable throughout the procedure and maintained spontaneous ventilation throughout. We will be available if needed. Stop Time: 10:20 Postprocedural Diagnosis: same JENISE/Cardioversion Anesthesia Type: MAC ASA Class: 3 Medications Propofol 100 mg IV Monitors and Equipment: BP Cuff - Left, Continuous EKG, End Tidal CO2, IV, Pulse Oximeter YESENIA FLOYD DO September 03, 2017 10:30
== END ==
LOC: CARD 07:24
PROVIDERS: ATTEND Internal Medicine Interventional Cardiology
DX: R00.2 Palpitations (principal); I34.0 Nonrheumatic mitral (valve) insufficiency; E78.5 Hyperlipidemia, unspecified; I51.7 Cardiomegaly; Z53.9 Procedure and treatment not carried out, unspecified reason
CPT/HCPCS: 36415; 80053; 85027; 85610; 85730; 87081

== ENCOUNTER → 2017-11-19 | Outpatient (CLI) | payer MEDICARE, OTHER ==
[~2017-11-19] MED LIST changes: -IPRA3AMP INH; +IPRA3AMP31 INH; -LIDOCAINE 2% VISCOUS 15 ML UDC ONE; -LIDOCAINE 2% VISCOUS 15 ML UDC PO ONE; -MIDAZOLAM 5 MG/5 ML (VERSED) VIAL IV PRN; -MIDAZOLAM 5 MG/5 ML (VERSED) VIAL ONE; -NS IV 1000 ML 1,000 ML IV SCH; -NS IV 1000 ML 1,000 ML ONE; -fentaNYL INJECTION 100 MCG/2 ML AMP INJ PRN; -fentaNYL INJECTION 100 MCG/2 ML AMP ONE; -proPOfol 200 MG/20 ML (DIPRIVAN) VIAL IV ONE
== END ==
LOC: CARD 09:36
PROVIDERS: ATTEND Internal Medicine Interventional Cardiology
DX: I08.1 Rheumatic disorders of both mitral and tricuspid valves (principal); R00.2 Palpitations
CPT/HCPCS: 93306

== ENCOUNTER → 2018-02-01 | Outpatient (CLI) | payer MEDICARE, OTHER | LOC: CARD 10:45 | PROVIDERS: ATTEND Internal Medicine Interventional Cardiology | DX: I34.0 Nonrheumatic mitral (valve) insufficiency (principal); I51.7 Cardiomegaly; R00.2 Palpitations | CPT/HCPCS: 93306 ==

== ENCOUNTER 2018-03-11 08:17 | Day surgery (SDC) | payer MEDICARE, OTHER ==
[~2018-03-11] VITALS: Ht 162.6 cm; Wt 63.5 kg
[2018-03-11] VITALS (11 sets, daily range): BP systolic 112–165; BP diastolic 57–74
[2018-03-11] MEDS ORDERED: LIDOCAINE 2% VISCOUS 15 ML UDC ONE (08:26)
[2018-03-11] MEDS ORDERED: NS IV 1000 ML 1,000 ML IV SCH (08:30)
[2018-03-11] MEDS ORDERED: proPOfol 200 MG/20 ML (DIPRIVAN) VIAL IV ONE (11:33)
[2018-03-11] MEDS ORDERED: MIDAZOLAM 2 MG/2 ML (VERSED) VIAL ONE (11:34)
--- NOTE | 2018-03-11 12:00 | Anesthesia-Procedure Note ---
Procedures/Interventions Procedure Start/Stop/Diagnosis Date of Procedure: Mar 11, 2018 Start Time: 11:37 Referring Physician: boom Stop Time: 11:53 JENISE/Cardioversion Anesthesia Type: MAC ASA Class: 2 Monitors and Equipment: BP Cuff - Left, Continuous EKG, End Tidal CO2, IV, Pulse Oximeter READING,LAURA Dlae CRNA Mar 11, 2018 12:00
--- OUTSIDE RECORDS SUMMARY | 2018-03-11 15:27 | XMS REPORT | Continuity of Care Document ---
Author Author [facility] Organization [facility] Address Unknown Phone Unavailable Allergies Active Description Code Type Severity Reaction Onset Reported/Identified Relationship to Patient Clinical Status Yes No Known Drug Allergies [id number] Drug Allergy Mild N/A 07/26/2009 Medications There is no data. Problems Date Dx Coded Attending Type Code Diagnosis Diagnosed By 09/09/2014 HERNAN THORNTON DO Ot V76.12 11/23/2014 HERNAN THORNTON DO Ot 433.10 11/23/2014 HERNAN THORNTON DO S Ot 433.30 12/26/2014 HERNAN THORNTON DO Ot 433.10 12/26/2014 HERNAN THORNTON DO Ot 433.30 07/19/2015 Ot G45.9 07/19/2015 Ot R42 08/03/2015 Ot G45.9 TRANSIENT CEREBRAL ISCHEMIC ATTACK, UNSP 08/03/2015 Ot R42 DIZZINESS AND GIDDINESS 08/29/2015 HERNAN THORNTON DO Ot Z12.31 ENCNTR SCREEN MAMMOGRAM FOR MALIGNANT NE 05/29/2017 Ot 793.82 INCONCLUSIVE MAMMOGRAM 05/29/2017 Ot V76.12 OTH SCREEN MAMMO-MALIGN NEOPLASM OF JASON 05/29/2017 HERNAN THORNTON DO S Ot 793.80 UNSPEC ABNORMAL MAMMOGRAM 05/29/2017 HERNAN THORNTON DO S Ot 272.4 HYPERLIPIDEMIA NEC/NOS 05/29/2017 HERNAN THORNTON DO S Ot 433.30 MULT BILTRAL ARTERY OCCLUSION WO CEREBRA 05/29/2017 HERNAN THORNTON DO S Ot 793.80 UNSPEC ABNORMAL MAMMOGRAM 05/29/2017 HERNAN THORNTON DO S Ot V76.12 OTH SCREEN MAMMO-MALIGN NEOPLASM OF JASON 05/29/2017 HERNAN THORNTON DO S Ot 733.90 BONE CARTILAGE DIS NOS 05/29/2017 KELLEN DOHERNAN Ot V49.81 ASYMPT POSTMENOPAUSAL STATUS (AGE-RELATE 05/29/2017 KELLEN KAYHERNAN S Ot 793.80 UNSPEC ABNORMAL MAMMOGRAM 05/29/2017 ADITYACHARLENE KAYHERNAN Ot V67.59 FOLLOW-UP EXAM NEC 05/29/2017 RIKYMARISA KAYHERNAN Ot V76.12 OTH SCREEN MAMMO-MALIGN NEOPLASM OF JASON 05/29/2017 RIKYMARISA KAYHERNAN S Ot 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 05/29/2017 RIKYMARISA KAYHERNAN S Ot 433.10 CAROTID ARTERY OCCLUSION W O CEREBRAL IN 05/29/2017 RIKYMARISA KAYHERNAN S Ot V76.12 OTH SCREEN MAMMO-MALIGN NEOPLASM OF JASON 05/29/2017 RIKYMARISA KAYHERNAN S Ot 433.10 CAROTID ARTERY OCCLUSION W O CEREBRAL IN 05/29/2017 ADITYACHARLENE KAYHERNAN Ot 433.30 MULT BILTRAL ARTERY OCCLUSION WO CEREBRA 05/29/2017 Ot G45.9 TRANSIENT CEREBRAL ISCHEMIC ATTACK, UNSP 05/29/2017 Ot R42 DIZZINESS AND GIDDINESS 05/29/2017 ADITYACHARLENE KAYHERNAN Ot Z12.31 ENCNTR SCREEN MAMMOGRAM FOR MALIGNANT NE 05/29/2017 HERNAN THORNTON DO Ot J18.9 PNEUMONIA, UNSPECIFIED ORGANISM 05/29/2017 HERNAN THORNTON DO Ot N39.0 URINARY TRACT INFECTION, SITE NOT SPECIF 05/29/2017 HERNAN THORNTON DO Ot R07.9 CHEST PAIN, UNSPECIFIED 06/01/2017 HERNAN THORNTON DO S Ot D64.9 ANEMIA, UNSPECIFIED 06/01/2017 HERNAN THORNTON DO S Ot E86.0 DEHYDRATION 06/01/2017 HERNAN THORNTON DO S Ot E87.1 HYPO-OSMOLALITY AND HYPONATREMIA 06/01/2017 HERNAN THORNTON DO Ot J13 PNEUMONIA DUE TO STREPTOCOCCUS PNEUMONIA 06/01/2017 HERNAN THORNTON DO Ot J18.9 PNEUMONIA, UNSPECIFIED ORGANISM 06/01/2017 HERNAN THORNTON DO Ot M54.9 DORSALGIA, UNSPECIFIED 06/01/2017 KELLEN KAY HERNAN S Ot N39.0 URINARY TRACT INFECTION, SITE NOT SPECIF 06/01/2017 KELLEN KAYCLAYTONHERNAN S Ot R07.9 CHEST PAIN, UNSPECIFIED 06/01/2017 KELLEN KAY, HERNAN S Ot R09.02 HYPOXEMIA 06/01/2017 KELLEN KAYHERNAN S Ot J18.9 PNEUMONIA, UNSPECIFIED ORGANISM 06/01/2017 KELLEN KAY, HERNAN S Ot N39.0 URINARY TRACT INFECTION, SITE NOT SPECIF 06/01/2017 RIKYNDCHARLENE KAY, HERNAN S Ot R07.9 CHEST PAIN, UNSPECIFIED 06/01/2017 Ot 793.82 INCONCLUSIVE MAMMOGRAM 06/01/2017 Ot V76.12 OTH SCREEN MAMMO-MALIGN NEOPLASM OF JASON 06/01/2017 KELLEN KAYCLAYTONHERNAN S Ot 793.80 UNSPEC ABNORMAL MAMMOGRAM 06/01/2017 ADITYACHARLENE HERNAN KAY S Ot 272.4 HYPERLIPIDEMIA NEC/NOS 06/01/2017 RIKYMARISA KAYCLAYTONHERNAN S Ot 433.30 MULT BILTRAL ARTERY OCCLUSION WO CEREBRA 06/01/2017 RIKYMARISA KAYCLAYTONHERNAN S Ot 793.80 UNSPEC ABNORMAL MAMMOGRAM 06/01/2017 RIKYMARISA KAYHERNAN S Ot V76.12 OTH SCREEN MAMMO-MALIGN NEOPLASM OF JASON 06/01/2017 RIKYMARISA KAYCLAYTONHERNAN S Ot 733.90 BONE CARTILAGE DIS NOS 06/01/2017 RIKYMARISA KAYCLAYTONHERNAN S Ot V49.81 ASYMPT POSTMENOPAUSAL STATUS (AGE-RELATE 06/01/2017 RIKYMARISA KAYCLAYTONHERNAN S Ot 793.80 UNSPEC ABNORMAL MAMMOGRAM 06/01/2017 RIKYMARISA KAYCLAYTONHERNAN S Ot V67.59 FOLLOW-UP EXAM NEC 06/01/2017 RIKYMARISA KAYCLAYTONHERNAN S Ot V76.12 OTH SCREEN MAMMO-MALIGN NEOPLASM OF JASON 06/01/2017 RIKYMARISA KAYCLAYTONHERNAN S Ot 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 06/01/2017 ADITYACHARLENE KAYCLAYTONHERNAN S Ot 433.10 CAROTID ARTERY OCCLUSION W O CEREBRAL IN 06/01/2017 CLAYTON THORNTON DOLINE S Ot V76.12 OTH SCREEN MAMMO-MALIGN NEOPLASM OF JASON 06/01/2017 CLAYTON THORNTON DOKISHA Shankar Ot 433.10 CAROTID ARTERY OCCLUSION W O CEREBRAL IN 06/01/2017 KELLEN KAY HERNAN S Ot 433.30 MULT BILTRAL ARTERY OCCLUSION WO CEREBRA 06/01/2017 Ot G45.9 TRANSIENT CEREBRAL ISCHEMIC ATTACK, UNSP 06/01/2017 Ot R42 DIZZINESS AND GIDDINESS 06/01/2017 RIKYMARISA KAY HERNAN S Ot Z12.31 ENCNTR SCREEN MAMMOGRAM FOR MALIGNANT NE 06/04/2017 ADITYACHARLENE HERNAN KAY Ot J90 PLEURAL EFFUSION, NOT ELSEWHERE CLASSIFI 06/04/2017 HERNAN THORNTON DO Ot M47.814 SPONDYLOSIS W/O MYELOPATHY OR RADICULOPA 06/04/2017 ADITYACHARLENE HERNAN KAY Ot M51.36 OTHER INTERVERTEBRAL DISC DEGENERATION, 06/04/2017 ADITYACHARLENE KAYHERNAN Ot M85.88 OTH DISRD OF BONE DENSITY AND STRUCTURE, 06/04/2017 ADITYACHARLENE KAYHERNAN Ot M89.38 HYPERTROPHY OF BONE, OTHER SITE 06/04/2017 ADITYACHARLENE KAYHERNAN S Ot R91.8 OTHER NONSPECIFIC ABNORMAL FINDING OF [place] 06/08/2017 Ot 793.82 INCONCLUSIVE MAMMOGRAM 06/08/2017 Ot V76.12 OTH SCREEN MAMMO-MALIGN NEOPLASM OF JASON 06/08/2017 KELLEN KAY HERNAN S Ot 793.80 UNSPEC ABNORMAL MAMMOGRAM 06/08/2017 HERNAN THORNTON DO S Ot 272.4 HYPERLIPIDEMIA NEC/NOS 06/08/2017 RIKYMARISA KAY HERNAN S Ot 433.30 MULT BILTRAL ARTERY OCCLUSION WO CEREBRA 06/08/2017 KELLEN KAY HERNAN S Ot 793.80 UNSPEC ABNORMAL MAMMOGRAM 06/08/2017 RIKYMARISA KAY HERNAN S Ot V76.12 OTH SCREEN MAMMO-MALIGN NEOPLASM OF JASON 06/08/2017 RIKYMARISA KAYHERNAN S Ot 733.90 BONE CARTILAGE DIS NOS 06/08/2017 RIKYMARISA HERNAN KAY S Ot V49.81 ASYMPT POSTMENOPAUSAL STATUS (AGE-RELATE 06/08/2017 HERNAN THORNTON DO S Ot 793.80 UNSPEC ABNORMAL MAMMOGRAM 06/08/2017 HERNAN THORNTON DO Ot V67.59 FOLLOW-UP EXAM NEC 06/08/2017 HERNAN THORNTON DO Ot V76.12 OTH SCREEN MAMMO-MALIGN NEOPLASM OF JASON 06/08/2017 ADITYACHARLENE HERNAN KAY Ot 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 06/08/2017 HERNAN THORNTON DO Ot 433.10 CAROTID ARTERY OCCLUSION W O CEREBRAL IN 06/08/2017 HERNAN THORNTON DO Ot V76.12 OTH SCREEN MAMMO-MALIGN NEOPLASM OF JASON 06/08/2017 HERNAN THORNTON DO Ot 433.10 CAROTID ARTERY OCCLUSION W O CEREBRAL IN 06/08/2017 HERNAN THORNTON DO Ot 433.30 MULT BILTRAL ARTERY OCCLUSION WO CEREBRA 06/08/2017 Ot G45.9 TRANSIENT CEREBRAL ISCHEMIC ATTACK, UNSP 06/08/2017 Ot R42 DIZZINESS AND GIDDINESS 06/08/2017 HERNAN THORNTON DO Ot Z12.31 ENCNTR SCREEN MAMMOGRAM FOR MALIGNANT NE 06/08/2017 HERNAN THORNTON DO Ot J90 PLEURAL EFFUSION, NOT ELSEWHERE CLASSIFI 06/08/2017 HERNAN THORNTON DO Ot M47.814 SPONDYLOSIS W/O MYELOPATHY OR RADICULOPA 06/08/2017 HERNAN THORNTON DO Ot M51.36 OTHER INTERVERTEBRAL DISC DEGENERATION, 06/08/2017 HERNAN THORNTON DO Ot M85.88 OTH DISRD OF BONE DENSITY AND STRUCTURE, 06/08/2017 HERNAN THORNTON DO Ot M89.38 HYPERTROPHY OF BONE, OTHER SITE 06/08/2017 HERNAN THORNTON DO Ot R91.8 OTHER NONSPECIFIC ABNORMAL FINDING OF [place] 06/09/2017 HERNAN THORNTON DO Ot N28.1 CYST OF KIDNEY, ACQUIRED 06/10/2017 HERNAN THORNTON DO Ot J90 PLEURAL EFFUSION, NOT ELSEWHERE CLASSIFI 06/10/2017 HERNAN THORNTON DO Ot M47.814 SPONDYLOSIS W/O MYELOPATHY OR RADICULOPA 06/10/2017 ORENDER DO, HERNAN S Ot M51.36 OTHER INTERVERTEBRAL DISC DEGENERATION, 06/10/2017 ORENDER DO, HERNAN S Ot M85.88 OTH DISRD OF BONE DENSITY AND STRUCTURE, 06/10/2017 ORENDER DO, HERNAN S Ot M89.38 HYPERTROPHY OF BONE, OTHER SITE 06/10/2017 ORENDER DO, HERNAN S Ot R91.8 OTHER NONSPECIFIC ABNORMAL FINDING OF [place] 06/30/2017 RIKYNDER DO, HERNAN S Ot J90 PLEURAL EFFUSION, NOT ELSEWHERE CLASSIFI 06/30/2017 ORENDER DO, HERNAN S Ot M47.814 SPONDYLOSIS W/O MYELOPATHY OR RADICULOPA 06/30/2017 ORENDER DO, HERNAN S Ot M51.36 OTHER INTERVERTEBRAL DISC DEGENERATION, 06/30/2017 ORENDER DO, HERNAN S Ot M85.88 OTH DISRD OF BONE DENSITY AND STRUCTURE, 06/30/2017 ORENDER DO, HERNAN S Ot M89.38 HYPERTROPHY OF BONE, OTHER SITE 06/30/2017 ORENDER DO, HERNAN S Ot R91.8 OTHER NONSPECIFIC ABNORMAL FINDING OF [place] 06/30/2017 RIKYNDER DO, HERNAN S Ot N28.1 CYST OF KIDNEY, ACQUIRED 07/01/2017 ORENDER DO, HERNAN S Ot J18.9 PNEUMONIA, UNSPECIFIED ORGANISM 07/01/2017 ORENDER DO, HERNAN S Ot J98.4 OTHER DISORDERS OF LUNG 07/01/2017 ORENDER DO, HERNAN S Ot J18.9 PNEUMONIA, UNSPECIFIED ORGANISM 07/01/2017 ORENDER DO, HERNAN S Ot R91.8 OTHER NONSPECIFIC ABNORMAL FINDING OF [place] 07/07/2017 ORENDER DO, HERNAN S Ot J18.9 PNEUMONIA, UNSPECIFIED ORGANISM 07/07/2017 ORENDER DO, HERNAN S Ot J18.9 PNEUMONIA, UNSPECIFIED ORGANISM 07/12/2017 ORENDER DO, HERNAN S Ot J18.9 PNEUMONIA, UNSPECIFIED ORGANISM 07/31/2017 ORENDER DO, HERNAN S Ot J18.9 PNEUMONIA, UNSPECIFIED ORGANISM 08/24/2017 ORENDER DO, HERNAN S Ot I08.1 RHEUMATIC DISORDERS OF BOTH MITRAL AND T 08/24/2017 HERNAN THORNTON DO Ot R00.2 PALPITATIONS 08/24/2017 HERNAN THORNTON DO Ot R01.1 CARDIAC MURMUR, UNSPECIFIED 09/04/2017 Baltazar GIRALDO MD Ot E78.5 HYPERLIPIDEMIA, UNSPECIFIED 09/04/2017 Baltazar GIRALDO MD Ot I34.0 NONRHEUMATIC MITRAL (VALVE) INSUFFICIENC 09/04/2017 Baltazar GIRALDO MD Ot I51.7 CARDIOMEGALY 09/04/2017 Baltazar GIRALDO MD Ot R00.2 PALPITATIONS 09/04/2017 Baltazar GIRALDO MD Ot Z53.9 PROCEDURE AND TREATMENT NOT CARRIED OUT, 09/09/2017 HERNAN THORNTON DO Ot I08.1 RHEUMATIC DISORDERS OF BOTH MITRAL AND T 09/09/2017 HERNAN THORNTON DO Ot R00.2 PALPITATIONS 09/09/2017 HERNAN THORNTON DO Ot R01.1 CARDIAC MURMUR, UNSPECIFIED 09/23/2017 Baltazar GIRALDO MD Ot E78.5 HYPERLIPIDEMIA, UNSPECIFIED 09/23/2017 Baltazar GIRALDO MD Ot I34.0 NONRHEUMATIC MITRAL (VALVE) INSUFFICIENC 09/23/2017 Baltazar GIRALDO MD Ot I51.7 CARDIOMEGALY 09/23/2017 Baltazar GIRALDO MD Ot R00.2 PALPITATIONS 09/23/2017 Baltazar GIRALDO MD Ot Z53.9 PROCEDURE AND TREATMENT NOT CARRIED OUT, 10/02/2017 Baltazar GIRALDO MD Ot E78.5 HYPERLIPIDEMIA, UNSPECIFIED 10/02/2017 Baltazar GIRALDO MD Ot I34.0 NONRHEUMATIC MITRAL (VALVE) INSUFFICIENC 10/02/2017 Baltazar GIRALDO MD Ot I51.7 CARDIOMEGALY 10/02/2017 Baltazar GIRALDO MD Ot R00.2 PALPITATIONS 12/03/2017 Baltazar GIRALDO MD Ot E78.5 HYPERLIPIDEMIA, UNSPECIFIED 12/03/2017 Baltazar GIRALDO MD Ot I34.0 NONRHEUMATIC MITRAL (VALVE) INSUFFICIENC 12/03/2017 Baltazar GIRALDO MD Ot I51.7 CARDIOMEGALY 12/03/2017 Baltazar GIRALDO MD Ot R00.2 PALPITATIONS 12/04/2017 Baltazar GIRALDO MD Ot E78.5 HYPERLIPIDEMIA, UNSPECIFIED 12/04/2017 Baltazar GIRALDO MD Ot I34.0 NONRHEUMATIC MITRAL (VALVE) INSUFFICIENC 12/04/2017 Baltazar GIRALDO MD Ot I51.7 CARDIOMEGALY 12/04/2017 Baltazar GIRALDO MD Ot R00.2 PALPITATIONS 12/31/2017 Baltazar GIRALDO MD Ot I08.1 RHEUMATIC DISORDERS OF BOTH MITRAL AND T 12/31/2017 Baltazar GIRALDO MD Ot R00.2 PALPITATIONS 03/01/2018 Baltazar GIRALDO MD Ot I34.0 NONRHEUMATIC MITRAL (VALVE) INSUFFICIENC 03/01/2018 Baltazar GIRALDO MD Ot I51.7 CARDIOMEGALY 03/01/2018 Baltazar GIRALDO MD Ot R00.2 PALPITATIONS Procedures Code Description Performed By Performed On 51.23 LAPAROSCOPIC CHOLECYSTECTOMY 07/31/2009 65.61 OTH REMOVE BOTH OVARIES/ TUBES 07/31/2009 68.49 OTHER AND UNSPECIFIED TOTAL ABDOMINAL HY 07/31/2009 87.53 INTRAOPER CHOLANGIOGRAM 07/31/2009 Results Test Result Range Complete blood count (CBC) with automated white blood cell (WBC) differential - 05/28/17 19:10 Blood leukocytes automated count (number/volume) 14.8 10*3/uL 4.3-11.0 Blood erythrocytes automated count (number/volume) 3.74 10*6/uL 4.35-5.85 Venous blood hemoglobin measurement (mass/volume) 11.9 g/dL 11.5-16.0 Blood hematocrit (volume fraction) 35 % 35-52 Automated erythrocyte mean corpuscular volume 93 [foz_us] 80-99 Automated erythrocyte mean corpuscular hemoglobin (mass per erythrocyte) 32 pg 25-34 Automated erythrocyte mean corpuscular hemoglobin concentration measurement ( mass/volume) 34 g/dL 32-36 Automated erythrocyte distribution width ratio 13.5 % 10.0-14.5 Automated blood platelet count (count/volume) 178 10*3/uL 130-400 Automated blood platelet mean volume measurement 10.9 [foz_us] 7.4-10.4 Automated blood neutrophils/100 leukocytes 88 % 42-75 Automated blood lymphocytes/100 leukocytes 5 % 12-44 Blood monocytes/100 leukocytes 7 % 0-12 Automated blood eosinophils/100 leukocytes 0 % 0-10 Automated blood basophils/100 leukocytes 0 % 0-10 Blood neutrophils automated count (number/volume) 12.9 10*3 1.8-7.8 Blood lymphocytes automated count (number/volume) 0.8 10*3 1.0-4.0 Blood monocytes automated count (number/volume) 1.0 10*3 0.0-1.0 Automated eosinophil count 0.0 10*3/uL 0.0-0.3 Automated blood basophil count (count/volume) 0.0 10*3/uL 0.0-0.1 Comprehensive metabolic panel - 05/28/17 19:10 Serum or plasma sodium measurement (moles/volume) 128 mmol/L 135-145 Serum or plasma potassium measurement (moles/volume) 4.3 mmol/L 3.6-5.0 Serum or plasma chloride measurement (moles/volume) 97 mmol/L 98-107 Carbon dioxide 18 mmol/L 21-32 Serum or plasma anion gap determination (moles/volume) 13 mmol/L 5-14 Serum or plasma urea nitrogen measurement (mass/volume) 14 mg/dL 7-18 Serum or plasma creatinine measurement (mass/volume) 1.02 mg/dL 0.60-1.30 Serum or plasma urea nitrogen/creatinine mass ratio 14 NRG Serum or plasma creatinine measurement with calculation of estimated glomerular filtration rate 53 NRG Serum or plasma glucose measurement (mass/volume) 159 mg/dL 70-105 Serum or plasma calcium measurement (mass/volume) 8.9 mg/dL 8.5-10.1 Serum or plasma total bilirubin measurement (mass/volume) 0.8 mg/dL 0.1-1.0 Serum or plasma alkaline phosphatase measurement (enzymatic activity/volume) 84 U/L 40-136 Serum or plasma aspartate aminotransferase measurement (enzymatic activity/ volume) 43 U/L 5-34 Serum or plasma alanine aminotransferase measurement (enzymatic activity/volume ) 50 U/L 0-55 Serum or plasma protein measurement (mass/volume) 6.7 g/dL 6.4-8.2 Serum or plasma albumin measurement (mass/volume) 3.6 g/dL 3.2-4.5 Blood manual differential performed detection - 05/28/17 19:10 Blood monocytes/100 leukocytes 4 % NRG Manual blood segmented neutrophils/100 leukocytes 88 % NRG Blood band neutrophils/100 leukocytes 4 % NRG Manual blood lymphocytes/100 leukocytes 4 % NRG Manual eosinophils/100 leukocytes in nose 0 % NRG Manual blood basophils/100 leukocytes 0 % NRG Blood erythrocyte morphology finding identification NORMAL NRG Complete urinalysis with reflex to culture - 05/28/17 19:37 Urine color determination YELLOW NRG Urine clarity determination CLEAR NRG Urine pH measurement by test strip 5 5-9 Specific gravity of urine by test strip 1.020 1.016- 1.022 Urine protein assay by test strip, semi-quantitative 3+ NEGATIVE Urine glucose detection by automated test strip NEGATIVE NEGATIVE Erythrocytes detection in urine sediment by light microscopy 1+ NEGATIVE Urine ketones detection by automated test strip 2+ NEGATIVE Urine nitrite detection by test strip NEGATIVE NEGATIVE Urine total bilirubin detection by test strip NEGATIVE NEGATIVE Urine urobilinogen measurement by automated test strip (mass/volume) NORMAL NORMAL Urine leukocyte esterase detection by dipstick 1+ NEGATIVE Automated urine sediment erythrocyte count by microscopy (number/high power field) RARE NRG Automated urine sediment leukocyte count by microscopy (number/high power field ) [HPF] NRG Bacteria detection in urine sediment by light microscopy FEW NRG Squamous epithelial cells detection in urine sediment by light microscopy 2-5 NRG Crystals detection in urine sediment by light microscopy NONE NRG Casts detection in urine sediment by light microscopy PRESENT NRG Mucus detection in urine sediment by light microscopy NEGATIVE NRG Complete urinalysis with reflex to culture NO NRG Coarse granular casts detection in urine sediment by light microscopy 10-25 NRG Blood lactic acid measurement (moles/volume) - 05/28/17 20:41 Blood lactic acid measurement (moles/volume) 1.69 mmol/L 0.50-2.00 Bacterial blood culture - 05/28/17 20:41 QUANTITY OF GROWTH . NRG Bacterial blood culture SEE COMMEN NRG Bacterial blood culture - 05/28/17 20:55 FREE TEXT EXTERNAL REFER TO [id number] (SAME ISOLATE) [facility] QUANTITY OF GROWTH Isolated [facility] Bacterial blood culture [id number] [facility] Complete blood count (CBC) with automated white blood cell (WBC) differential - 05/29/17 05:19 Blood leukocytes automated count (number/volume) 12.8 10*3/uL 4.3-11.0 Blood erythrocytes automated count (number/volume) 3.39 10*6/uL 4.35-5.85 Venous blood hemoglobin measurement (mass/volume) 10.5 g/dL 11.5-16.0 Blood hematocrit (volume fraction) 32 % 35-52 Automated erythrocyte mean corpuscular volume 94 [foz_us] 80-99 Automated erythrocyte mean corpuscular hemoglobin (mass per erythrocyte) 31 pg 25-34 Automated erythrocyte mean corpuscular hemoglobin concentration measurement ( mass/volume) 33 g/dL 32-36 Automated erythrocyte distribution width ratio 13.7 % 10.0-14.5 Automated blood platelet count (count/volume) 157 10*3/uL 130-400 Automated blood platelet mean volume measurement 11.6 [foz_us] 7.4-10.4 Automated blood neutrophils/100 leukocytes 86 % 42-75 Automated blood lymphocytes/100 leukocytes 7 % 12-44 Blood monocytes/100 leukocytes 6 % 0-12 Automated blood eosinophils/100 leukocytes 0 % 0-10 Automated blood basophils/100 leukocytes 0 % 0-10 Blood neutrophils automated count (number/volume) 11.1 10*3 1.8-7.8 Blood lymphocytes automated count (number/volume) 0.9 10*3 1.0-4.0 Blood monocytes automated count (number/volume) 0.8 10*3 0.0-1.0 Automated eosinophil count 0.0 10*3/uL 0.0-0.3 Automated blood basophil count (count/volume) 0.0 10*3/uL 0.0-0.1 Whole blood basic metabolic panel - 05/29/17 05:19 Serum or plasma sodium measurement (moles/volume) 131 mmol/L 135-145 Serum or plasma potassium measurement (moles/volume) 3.8 mmol/L 3.6-5.0 Serum or plasma chloride measurement (moles/volume) 101 mmol/L 98-107 Carbon dioxide 22 mmol/L 21-32 Serum or plasma anion gap determination (moles/volume) 8 mmol/L 5-14 Serum or plasma urea nitrogen measurement (mass/volume) 15 mg/dL 7-18 Serum or plasma creatinine measurement (mass/volume) 0.82 mg/dL 0.60-1.30 Serum or plasma urea nitrogen/creatinine mass ratio 18 NRG Serum or plasma creatinine measurement with calculation of estimated glomerular filtration rate > NRG Serum or plasma glucose measurement (mass/volume) 92 mg/dL 70-105 Serum or plasma calcium measurement (mass/volume) 8.2 mg/dL 8.5-10.1 Complete blood count (CBC) with automated white blood cell (WBC) differential - 05/30/17 05:25 Blood leukocytes automated count (number/volume) 8.0 10*3/uL 4.3-11.0 Blood erythrocytes automated count (number/volume) 3.14 10*6/uL 4.35-5.85 Venous blood hemoglobin measurement (mass/volume) 9.7 g/dL 11.5-16.0 Blood hematocrit (volume fraction) 29 % 35-52 Automated erythrocyte mean corpuscular volume 92 [foz_us] 80-99 Automated erythrocyte mean corpuscular hemoglobin (mass per erythrocyte) 31 pg 25-34 Automated erythrocyte mean corpuscular hemoglobin concentration measurement ( mass/volume) 33 g/dL 32-36 Automated erythrocyte distribution width ratio 13.7 % 10.0-14.5 Automated blood platelet count (count/volume) 196 10*3/uL 130-400 Automated blood platelet mean volume measurement 10.9 [foz_us] 7.4-10.4 Automated blood neutrophils/100 leukocytes 76 % 42-75 Automated blood lymphocytes/100 leukocytes 13 % 12-44 Blood monocytes/100 leukocytes 9 % 0-12 Automated blood eosinophils/100 leukocytes 2 % 0-10 Automated blood basophils/100 leukocytes 0 % 0-10 Blood neutrophils automated count (number/volume) 6.1 10*3 1.8-7.8 Blood lymphocytes automated count (number/volume) 1.1 10*3 1.0-4.0 Blood monocytes automated count (number/volume) 0.7 10*3 0.0-1.0 Automated eosinophil count 0.1 10*3/uL 0.0-0.3 Automated blood basophil count (count/volume) 0.0 10*3/uL 0.0-0.1 Comprehensive metabolic panel - 05/30/17 05:25 Serum or plasma sodium measurement (moles/volume) 131 mmol/L 135-145 Serum or plasma potassium measurement (moles/volume) 4.0 mmol/L 3.6-5.0 Serum or plasma chloride measurement (moles/volume) 101 mmol/L 98-107 Carbon dioxide 19 mmol/L 21-32 Serum or plasma anion gap determination (moles/volume) 11 mmol/L 5-14 Serum or plasma urea nitrogen measurement (mass/volume) 11 mg/dL 7-18 Serum or plasma creatinine measurement (mass/volume) 0.77 mg/dL 0.60-1.30 Serum or plasma urea nitrogen/creatinine mass ratio 14 NRG Serum or plasma creatinine measurement with calculation of estimated glomerular filtration rate > NRG Serum or plasma glucose measurement (mass/volume) 97 mg/dL 70-105 Serum or plasma calcium measurement (mass/volume) 8.0 mg/dL 8.5-10.1 Serum or plasma total bilirubin measurement (mass/volume) 0.4 mg/dL 0.1-1.0 Serum or plasma alkaline phosphatase measurement (enzymatic activity/volume) 79 U/L 40-136 Serum or plasma aspartate aminotransferase measurement (enzymatic activity/ volume) 57 U/L 5-34 Serum or plasma alanine aminotransferase measurement (enzymatic activity/volume ) 60 U/L 0-55 Serum or plasma protein measurement (mass/volume) 5.3 g/dL 6.4-8.2 Serum or plasma albumin measurement (mass/volume) 3.0 g/dL 3.2-4.5 Stool occult blood screen - 05/31/17 07:20 Stool gastrointestinal hemoglobin detection NEGATIVE NEGATIVE Automated blood complete blood count (hemogram) panel - 09/03/17 07:50 Blood leukocytes automated count (number/volume) 3.9 10*3/uL 4.3-11.0 Blood erythrocytes automated count (number/volume) 4.27 10*6/uL 4.35-5.85 Venous blood hemoglobin measurement (mass/volume) 13.1 g/dL 11.5-16.0 Blood hematocrit (volume fraction) 40 % 35-52 Automated erythrocyte mean corpuscular volume 93 [foz_us] 80-99 Automated erythrocyte mean corpuscular hemoglobin (mass per erythrocyte) 31 pg 25-34 Automated erythrocyte mean corpuscular hemoglobin concentration measurement ( mass/volume) 33 g/dL 32-36 Automated erythrocyte distribution width ratio 13.8 % 10.0-14.5 Automated blood platelet count (count/volume) 214 10*3/uL 130-400 Automated blood platelet mean volume measurement 10.2 [foz_us] 7.4-10.4 Comprehensive metabolic panel - 09/03/17 07:50 Serum or plasma sodium measurement (moles/volume) 140 mmol/L 135-145 Serum or plasma potassium measurement (moles/volume) 4.2 mmol/L 3.6-5.0 Serum or plasma chloride measurement (moles/volume) 105 mmol/L 98-107 Carbon dioxide 26 mmol/L 21-32 Serum or plasma anion gap determination (moles/volume) 9 mmol/L 5-14 Serum or plasma urea nitrogen measurement (mass/volume) 16 mg/dL 7-18 Serum or plasma creatinine measurement (mass/volume) 0.81 mg/dL 0.60-1.30 Serum or plasma urea nitrogen/creatinine mass ratio 20 NRG Serum or plasma creatinine measurement with calculation of estimated glomerular filtration rate > NRG Serum or plasma glucose measurement (mass/volume) 88 mg/dL 70-105 Serum or plasma calcium measurement (mass/volume) 9.4 mg/dL 8.5-10.1 Serum or plasma total bilirubin measurement (mass/volume) 0.7 mg/dL 0.1-1.0 Serum or plasma alkaline phosphatase measurement (enzymatic activity/volume) 79 U/L 40-136 Serum or plasma aspartate aminotransferase measurement (enzymatic activity/ volume) 22 U/L 5-34 Serum or plasma alanine aminotransferase measurement (enzymatic activity/volume ) 18 U/L 0-55 Serum or plasma protein measurement (mass/volume) 7.0 g/dL 6.4-8.2 Serum or plasma albumin measurement (mass/volume) 4.2 g/dL 3.2-4.5 PT panel in platelet poor plasma by coagulation assay - 09/03/17 07:50 Prothrombin time (PT) in platelet poor plasma by coagulation assay 13.1 s 12.2-14.7 INR in platelet poor plasma or blood by coagulation assay 1.0 0.8-1.4 Activated partial thromboplastin time (aPTT) in platelet poor plasma bycoagulation assay - 09/03/17 07:50 Activated partial thromboplastin time (aPTT) in platelet poor plasma bycoagulation assay 29 s 24-35 Methicillin resistant Staphylococcus aureus (MRSA) screening culture - 07:50 Methicillin resistant Staphylococcus aureus (MRSA) screening culture NEG NRG Encounters ACCT No. Visit Date/Time Discharge Status Pt. Type Provider Facility Loc./Unit Complaint [id number] 02/01/2018 10:45:00 02/01/2018 23:59:59 CLS Outpatient Baltazar GIRALDO MD [facility] CARD I34.0 MITRAL REGURGITATION [id number] 12/04/2017 00:08:00 12/04/2017 23:59:59 CLS Preadmit Baltazar GIRALDO MD [facility] CARD DIASTOLIC DYSFUNCTION [id number] 09/04/2017 09:20:00 12/03/2017 00:01:00 DIS Outpatient Baltazar GIRALDO MD [facility] CARD DIASTOLIC DYSFUNCTION [id number] 11/19/2017 10:00:00 11/19/2017 23:59:59 CLS Outpatient Baltazar GIRALDO MD [facility] CARD LVH [id number] 09/03/2017 07:24:00 09/03/2017 23:59:59 CLS Outpatient Baltazar GIRALDO MD [facility] CARD SEE ORDER [id number] 08/20/2017 08:34:00 08/20/2017 23:59:59 CLS Outpatient KELLEN KAY HERNAN S [facility] CARD CARDIAC MURMUR, PALPITATIONS [id number] 07/06/2017 11:43:00 07/06/2017 23:59:59 CLS Outpatient ORENDER DO HERNAN S [facility] RAD COUGH [id number] 06/30/2017 10:02:00 06/30/2017 23:59:59 CLS Outpatient ORENDER DO, HERNAN S [facility] RAD PNEUMONIA J18.9 [id number] 06/09/2017 10:47:00 06/09/2017 23:59:59 CLS Outpatient RIKYNDER DO, HERNAN S [facility] RAD RENAL CYST RT FLANK PAIN [id number] 06/04/2017 11:42:00 06/04/2017 23:59:59 CLS Outpatient CLAYTON THORNTON DOLINE S [facility] RAD R THORACIC LUMBAR PAIN [id number] 05/28/2017 20:32:00 06/01/2017 14:50:00 DIS Inpatient HERNAN THORNTON DO S [facility] 4TH RLL PNEUMONIA [id number] 08/07/2015 08:52:00 08/07/2015 23:59:59 CLS Outpatient CLAYTON THORNTON DOLINE S [facility] RAD SCREENING [id number] 10/31/2014 08:54:00 10/31/2014 23:59:59 CLS Outpatient CLAYTON THORNTON DOLINE S [facility] RAD HX OF TIA,ILDA [id number] 08/03/2014 10:20:00 08/03/2014 23:59:59 CLS Outpatient CLAYTON THORNTON DOLINE S [facility] RAD SCREENING [id number] 10/27/2013 13:14:00 10/27/2013 23:59:59 CLS Outpatient MELLO THORNTON DOQUELINE S [facility] RAD CORNARY ARTERY DISEASE [id number] 08/04/2013 08:21:00 08/04/2013 23:59:59 CLS Outpatient CLAYTON THORNTON DOLINE S [facility] RAD OSTEOPENIA [id number] 07/27/2013 13:18:00 07/27/2013 23:59:59 CLS Outpatient MELLO THORNTON DOQUELINE S [facility] RAD F/U RT BREAST DENSITY,SCREENING [id number] 02/24/2013 13:17:00 02/24/2013 23:59:59 CLS Outpatient CLAYTON THORNTON DOLINE S [facility] RAD FOLLOW UP 6 MONTH [id number] 10/26/2012 10:33:00 10/26/2012 23:59:59 CLS Outpatient CLAYTON THORNTON DOLINE S [facility] RAD VERTEBRAL ARTERY SYNDROME [id number] 08/17/2012 08:04:00 08/17/2012 23:59:59 CLS Outpatient HERNAN THORNTON DO [facility] RAD ABN MAMMO [id number] 07/13/2015 09:42:00 Document Registration [id number] 07/27/2012 14:40:00 Document Registration [id number] 07/31/2009 05:47:00 Document Registration 05/31/17 02/01/2018 14:04:40 02/01/2018 23:59:59 CLS Outpatient Hernan Thornton
== END 2018-03-11 13:13 | disposition home or self-care (01) ==
LOC: SDC 08:17
PROVIDERS: ATTEND Internal Medicine Interventional Cardiology
DX: I34.0 Nonrheumatic mitral (valve) insufficiency (principal); E78.5 Hyperlipidemia, unspecified; R00.2 Palpitations; R06.02 Shortness of breath; Z79.82 Long term (current) use of aspirin; Z79.899 Other long term (current) drug therapy
CPT/HCPCS: 93005; 93312; 93320; 93325

== ENCOUNTER 2018-04-28 15:45 | Outpatient (CLI) | payer MEDICARE, OTHER ==
[~2018-04-28] VITALS: Ht 162.6 cm; Wt 63.5 kg
== END 2018-04-28 15:49 | disposition home or self-care (01) ==
LOC: PREOP 15:45
PROVIDERS: ATTEND Surgery
DX: Z01.818 Encounter for other preprocedural examination (principal)

== ENCOUNTER 2018-05-03 10:11 | Day surgery (SDC) | payer MEDICARE, OTHER ==
[~2018-05-03] VITALS: Ht 162.6 cm; Wt 63.5 kg
[2018-05-03 10:15] VITALS: BP 137/80
--- OUTSIDE RECORDS SUMMARY | 2018-05-03 10:15 | XMS REPORT | Continuity of Care Document ---
Author Author [facility] Organization [facility] Address Unknown Phone Unavailable Allergies Active Description Code Type Severity Reaction Onset Reported/Identified Relationship to Patient Clinical Status Yes No Known Drug Allergies [id number] Drug Allergy Mild N/A 07/26/2009 Medications There is no data. Problems Date Dx Coded Attending Type Code Diagnosis Diagnosed By 09/09/2014 HERNAN THORNTON DO Ot V76.12 11/23/2014 HERNAN THORNTON DO Ot 433.10 11/23/2014 HERNAN THORNTON DO Ot 433.30 12/26/2014 HERNAN THORNTON DO Ot [...] KAYHERNAN S Ot 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 [place] CORON 05/29/2017 RIKYMARISA KAYHERNAN S Ot 433.10 [...] KAYCLAYTONHERNAN S Ot 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 [place] CORON 06/01/2017 ADITYACHARLENE KAYCLAYTONHERNAN S Ot 433.10 [...] M89.38 HYPERTROPHY OF BONE, OTHER SITE 06/04/2017 AIDTYACHARLENE KAYHERNAN S Ot R91.8 OTHER NONSPECIFIC ABNORMAL [...] HERNAN KAY Ot 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 [place] CORON 06/08/2017 HERNAN THORNTON DO Ot 433.10 [...] 03/01/2018 Baltazar GIRALDO MD Ot R00.2 PALPITATIONS 03/11/2018 Baltazar GIRALDO MD Ot E78.5 HYPERLIPIDEMIA, UNSPECIFIED 03/11/2018 Baltazar GIRALDO MD Ot I34.0 NONRHEUMATIC MITRAL (VALVE) INSUFFICIENC 03/11/2018 Baltazar GIRALDO MD Ot R00.2 PALPITATIONS 03/11/2018 Baltazar GIRALDO MD Ot R06.02 SHORTNESS OF BREATH 03/11/2018 Baltazar GIRALDO MD Ot 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 03/11/2018 Baltazar GIRALDO MD Ot Z79.899 OTHER HOUSEKEEPING CLEANER (CURRENT) DRUG THERAPY 03/15/2018 Baltazar GIRALDO MD Ot E78.5 HYPERLIPIDEMIA, UNSPECIFIED 03/15/2018 Baltazar GIRALDO MD Ot I34.0 NONRHEUMATIC MITRAL (VALVE) INSUFFICIENC 03/15/2018 Baltazar GIRALDO MD Ot R00.2 PALPITATIONS 03/15/2018 Baltazar GIRALDO MD Ot R06.02 SHORTNESS OF BREATH 03/15/2018 Baltazar GIRALDO MD Ot 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 03/15/2018 Baltazar GIRALDO MD Ot Z79.899 OTHER [facility] (CURRENT) DRUG THERAPY 03/16/2018 Baltazar GIRALDO MD Ot E78.5 HYPERLIPIDEMIA, UNSPECIFIED 03/16/2018 Baltazar GIRALDO MD Ot I34.0 NONRHEUMATIC MITRAL (VALVE) INSUFFICIENC 03/16/2018 Baltazar GIRALDO MD Ot R00.2 PALPITATIONS 03/16/2018 Baltazar GIRALDO MD Ot R06.02 SHORTNESS OF BREATH 03/16/2018 Baltazar GIRALDO MD Ot Z79.82 [facility] (CURRENT) USE OF ASPIRIN 03/16/2018 Baltazar GIRALDO MD Ot Z79.899 OTHER HOUSEKEEPING CLEANER (CURRENT) DRUG THERAPY 04/27/2018 SIMÓN CRENSHAW MD Ot Z01.818 ENCOUNTER FOR OTHER PREPROCEDURAL EXAMIN 04/28/2018 SIMÓN CRENSHAW MD Ot Z01.818 ENCOUNTER FOR OTHER PREPROCEDURAL EXAMIN 04/28/2018 SIMÓN CRENSHAW MD Ot Z01.818 ENCOUNTER FOR OTHER PREPROCEDURAL EXAMIN 04/29/2018 SIMÓN CRENSHAW MD Ot Z01.818 ENCOUNTER FOR OTHER PREPROCEDURAL EXAMIN Procedures Code Description Performed By Performed On [...] in urine sediment by light microscopy 10-25 [facility] Blood lactic acid measurement (moles/volume) - 05/28/17 20:41 Blood lactic acid measurement (moles/volume) 1.69 mmol/L 0.50-2.00 Bacterial blood culture - 05/28/17 20:41 QUANTITY OF GROWTH . [facility] Bacterial blood culture SEE COMMEN [facility] Bacterial blood culture - 05/28/17 20:55 FREE TEXT EXTERNAL REFER TO M2829 (SAME ISOLATE) NR QUANTITY OF GROWTH Isolated [facility] Bacterial blood culture [id number] [facility] Complete blood count (CBC) with automated white [...] Status Pt. Type Provider Facility Loc./Unit Complaint [id number] 04/28/2018 15:45:00 04/28/2018 15:49:00 DIS Outpatient SIMÓN CRENSHAW MD [facility] PREOP EGD [id number] 03/11/2018 08:17:00 03/11/2018 13:13:00 DIS Outpatient Baltazar GIRALDO MD [facility] MODERATE/SEVERE MITRAL REGURGITATION [id number] 02/01/2018 10:45:00 02/01/2018 23:59:59 CLS Outpatient Baltazar GIRALDO MD [facility] CARD I34.0 MITRAL REGURGITATION [id number] 12/04/2017 00:08:00 12/04/2017 23:59:59 CLS Preadmit Baltazar GIRALDO MD [facility] CARD DIASTOLIC DYSFUNCTION [id number] 09/04/2017 09:20:00 12/03/2017 00:01:00 DIS Outpatient Baltazar GIRALDO MD [facility] CARD DIASTOLIC DYSFUNCTION [id number] 11/19/2017 10:00:00 11/19/2017 23:59:59 CLS Outpatient Baltazar GIRALDO MD [facility] CARD LVH [id number] 09/03/2017 07:24:00 09/03/2017 23:59:59 CLS Outpatient Baltazar GIRALDO MD [facility] CARD SEE ORDER [id number] 08/20/2017 08:34:00 08/20/2017 23:59:59 CLS Outpatient RIKYNDER DO, HERNAN S [facility] CARD CARDIAC MURMUR, PALPITATIONS [id number] 07/06/2017 11:43:00 07/06/2017 23:59:59 CLS Outpatient RIKYNDER DO, HERNAN S [facility] RAD COUGH [id number] 06/30/2017 10:02:00 06/30/2017 23:59:59 CLS Outpatient ORENDER DO, HERNAN S [facility] RAD PNEUMONIA J18.9 [id number] 06/09/2017 10:47:00 06/09/2017 23:59:59 CLS Outpatient RIKYNDER DO, HERNAN S [facility] RAD RENAL CYST RT FLANK PAIN [id number] 06/04/2017 11:42:00 06/04/2017 23:59:59 CLS Outpatient RIKYNDCHARLENE DO HERNAN S [facility] RAD R THORACIC LUMBAR PAIN [id number] 05/28/2017 20:32:00 06/01/2017 14:50:00 DIS Inpatient RIKYNDER DO HERNAN S [facility] 4TH RLL PNEUMONIA [id number] 08/07/2015 08:52:00 08/07/2015 23:59:59 CLS Outpatient RIKYNDER DO HERNAN S [facility] RAD SCREENING [id number] 10/31/2014 08:54:00 10/31/2014 23:59:59 CLS Outpatient ORENDER DO, HERNAN S [facility] RAD HX OF TIA,ILDA [id number] 08/03/2014 10:20:00 08/03/2014 23:59:59 CLS Outpatient ORENDER DO, HERNAN S [facility] RAD SCREENING [id number] 10/27/2013 13:14:00 10/27/2013 23:59:59 CLS Outpatient ORENDER DO, HERNAN S [facility] RAD CORNARY ARTERY DISEASE [id number] 08/04/2013 08:21:00 08/04/2013 23:59:59 CLS Outpatient HERNAN THORNTON DO [facility] RAD OSTEOPENIA [id number] 07/27/2013 13:18:00 07/27/2013 23:59:59 CLS Outpatient HERNAN THORNTON DO S [facility] RAD F/U RT BREAST DENSITY,SCREENING [id number] 02/24/2013 13:17:00 02/24/2013 23:59:59 CLS Outpatient HERNAN THORNTON DO [facility] RAD FOLLOW UP 6 MONTH [id number] 10/26/2012 10:33:00 10/26/2012 23:59:59 CLS Outpatient HERNAN THORNTON DO [facility] RAD VERTEBRAL ARTERY SYNDROME [id number] 08/17/2012 08:04:00 08/17/2012 23:59:59 CLS Outpatient HERNAN THORNTON DO [facility] RAD ABN MAMMO [id number] 05/03/2018 11:00:00 PEN Preadpaulie CRENSHAW MD, SIMÓN Ledesma [facility] ENDO EPIGASTRIC PAIN/DYSPHAGIA [id number] 07/13/2015 09:42:00 Document Registration [id number] 07/27/2012 14:40:00 Document Registration [id number] 07/31/2009 05:47:00 Document Registration 05/31/17 04/19/2018 09:42:07 04/19/2018 23:59:59 CLS Outpatient Hernan Thornton
[2018-05-03] MEDS ORDERED: NS IV 500 ML 500 ML IV PRN (10:19)
[2018-05-03] MEDS ORDERED: NS IV 500 ML 500 ML ONE (10:23)
--- NOTE | 2018-05-03 10:25 | History & Physicial ---
History of Present Illness History of Present Illness Reason for visit/HPI to undergo an upper endoscopy regarding epigastric pain and dysphagia Date of Admission 05/03/18 Date Seen by a Provider: May 03, 2018 Time Seen by a Provider: 10:24 I consulted on this patient on 05/03/18 10:23 Attending Physician Simón Dexter MD Admitting Physician Emily Thornton DO Consult Allergies and Home Medications Allergies Coded Allergies: No Known Drug Allergies (Unverified , 07/26/09) Home Medications Aspirin 325 Mg Tablet, 325 MG PO DAILY, (Reported) Atorvastatin Calcium 10 Mg Tablet, 5 MG PO DAILY, (Reported) TAKES 1/2 (10MG) TABLET Calcium Carbonate/Vitamin D3 1 Each Tablet, 1 TAB PO DAILY, (Reported) Cholecalciferol (Vitamin D3) 1,000 Unit Capsule, 1,000 UNIT PO MoWeFr, (Reported ) L. Acidophilus/Pectin, [place] 1 Each Capsule, 1 CAP PO DAILY PRN for STOMACH UPSET, (Reported) Multivitamin 1 Each Tablet, 1 TAB PO DAILY, (Reported) [place]-3 Fatty Acids/Fish Oil 1 Each Capsule, 2,400 MG PO DAILY, (Reported) Patient Home Medication List Home Medication List Reviewed: Yes Past Apgfmgo-Uaagqw-Fiutri Hx Patient Social History Marrital Status: Employed/Student: retired Recent Foreign Travel: No Contact w/other who traveled: No Recent Hopitalizations: No Immunizations Up To Date Tetanus Booster (TDap): Unknown Pediatric: No Date of Pneumonia Vaccine: Jan 14, 2016 Date of Influenza Vaccine: Jan 12, 2018 Seasonal Allergies Seasonal Allergies: No Surgeries Yes Eye Surgery, Hysterectomy, Tubal Ligation Respiratory No Cardiovascular Yes (mitral valve regurgition) Neurological No Reproductive System Hx Reproductive Disorders: No Genitourinary Yes UTI-Chronic Gastrointestinal Yes (dysphagia) Gall Bladder Disease Musculoskeletal No Endocrine History of Endocrine Disorders: No HEENT History of HEENT Disorders: Yes HEENT Disorders: Cataract Loss of Vision: Bilateral Hearing Impairment: Denies Cancer No Psychosocial History of Psychiatric Problem: No Integumentary History of Skin or Integumenta: No Blood Transfusions History of Blood Disorders: No Adverse Reaction to a Blood Tr: No Family Medical History Family Hx: Patient reports no known family medical history. Review of Systems Constitutional: no symptoms reported EENTM: no symptoms reported Respiratory: no symptoms reported Cardiovascular: no symptoms reported Gastrointestinal: see HPI Genitourinary: no symptoms reported Musculoskeletal: no symptoms reported Skin: no symptoms reported Psychiatric/Neurological: No Symptoms Reported Physical Exam Vital Signs Capillary Refill : Height, Weight, BMI Height: 5'4.00" Weight: 140lbs. 0.0oz. 63.978994lm; 24.0 BMI Method:Stated General Appearance: No Apparent Distress Neck: Normal Inspection Respiratory: Lungs Clear Cardiovascular: Regular Rate, Rhythm Gastrointestinal: Non Tender, Soft Neurologic/Psychiatric: Alert, Oriented x3 Skin: Warm/Dry Assessment/Plan Assessment and Plan lady with epigastric pain and dysphagia. For upper endoscopy with antral biopsy and possible balloon dilatation Admission Diagnosis Admission Status: Other (Outpt Proc) SIMÓN DEXTER MD May 03, 2018 10:25
--- NOTE | 2018-05-03 10:26 | Conscious Sedation/ASA ---
Conscious Sedation Pre-Proced Time 10:25 ASA Score 2 For ASA 3 and 4: Consider anesthesia and medical clearance. Also, for patients with a history of failed moderate sedation consider anesthesia. Airway Lungs Heart ASA score ASA 1: a normal healthy patient ASA 2: a patient with a mild systemic disease (mid diabetes, controlled hypertension, obesity ASA 3: a patient with a severe systemic disease that limits activity (angina , COPD, prior Myocardial infarction) ASA 4: a patient with an incapacitating disease that is a constant threat to life (CHF, renal failure) ASA 5: a moribund patient not expected to survive 24 hrs. (ruptured aneurysm) ASA 6: a declared brain patient whose organs are being harvested. For emergent operations, add the letter E after the classification Mallampati Classification Grade 1 Sedation Plan Discussed options with patient/fam The patient is an appropriate candidate to undergo the planned procedure, sedation, and anesthesia. The patient immediately re-assessed prior to indication. SIMÓN CRENSHAW MD May 03, 2018 10:25
[2018-05-03] MEDS ORDERED: fentaNYL INJECTION 100 MCG/2 ML AMP IVP ONE (10:30)
[2018-05-03] MEDS ORDERED: MIDAZOLAM 2 MG/2 ML (VERSED) VIAL IVP ONE (10:30)
[2018-05-03] MEDS ORDERED: HURRICAINE EXT TUBE (BENZOCAINE) XX PRN (10:30)
[2018-05-03] MEDS ORDERED: fentaNYL INJECTION 100 MCG/2 ML AMP ONE (10:51)
[2018-05-03] MEDS ORDERED: MIDAZOLAM 2 MG/2 ML (VERSED) VIAL ONE ×3 (10:52)
[2018-05-03] MEDS ORDERED: HURRICAINE EXT TUBE (BENZOCAINE) ONE (10:52)
[2018-05-03 11:15] VITALS: BP 117/69
--- NOTE | 2018-05-03 11:35 | Endo Procedure Record ---
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 Hiatal hernia 3 mm sessile polyp at the pylorus Procedure Performed EGD with antral biopsy for H. pylori Biopsy of sessile polyp at the pylorus Description of Procedure Anesthesia Type: Conscious Sedation Specimen(s) collected/removed antral mucosa for H. pylori Fragments of sessile polyp at the pylorus Description of the Procedure Indication for the procedure: This lady came in for an upper endoscopy to evaluate epigastric pain and occasional dysphagia. Informed consent was obtained after reviewing the procedure. Description of the procedure: She was placed in left lateral rectus position and her vital signs were monitored. Conscious sedation was achieved using Versed and fentanyl. The flexible gastroscope was then introduced down the esophagus, past the stomach, into the proximal duodenum. Findings: Esophagus: Long hiatal hernia without any stricture. Stomach: 1. 1 mm AV malformation with no bleeding at the antrum. An antral biopsy was obtained for Helicobacter status 2. 3 mm sessile polyp at the pylorus. If you biopsy fragments were obtained. Duodenum: Normal She tolerated the procedure well and was taken back to the nursing area in a stable condition. Impression: Epigastric pain and dysphagia. No stricture. Sessile polyp at the pylorus, biopsy pending Copy Copies To 1: HERNAN FOREMAN XAVIER M MD May 03, 2018 11:35
--- NOTE | 2018-05-03 11:36 | Discharge Inst-Simple/Standard ---
Discharge Inst-Standard Discharge Medications New, Converted or Re-Newed RX: Other Patient Instructions/Follow Up Plan of Care/Instructions/FU: will call once biopsy reports become available Activity as Tolerated: Yes Discharge Diet: No Restrictions SIMÓN CRENSHAW MD May 03, 2018 11:36
[2018-05-03 12:25] VITALS: BP 127/68
[2018-05-03 12:40] VITALS: BP 127/68
== END 2018-05-03 12:40 | disposition home or self-care (01) ==
LOC: ENDO 10:11
PROVIDERS: ATTEND Surgery
DX: K31.7 Polyp of stomach and duodenum (principal); K29.50 Unspecified chronic gastritis without bleeding; K44.9 Diaphragmatic hernia without obstruction or gangrene; Q27.39 Arteriovenous malformation, other site; I34.0 Nonrheumatic mitral (valve) insufficiency; Z79.82 Long term (current) use of aspirin; Z79.899 Other long term (current) drug therapy

== ENCOUNTER → 2018-09-20 | Outpatient (CLI) | payer MEDICARE, OTHER ==
--- NOTE | 2018-09-20 16:43 | Diagnostic Imaging Report ---
CLINICAL INDICATION: Patient with carotid artery stenosis. Comparison: Ultrasound of the carotid arteries dated 10/31/2014. Exam: Real-time carotid Doppler duplex imaging is performed bilaterally. Peak systolic velocity, ICA/CCA peak systolic ratio, spectral analysis, and vascular morphology are studied. Findings: ARTERY VELOCITY Right Left CCA 0.81 m/s 0.87 m/s ICA 0.68 m/s 1.00 m/s ECA 0.80 m/s 0.68 m/s ICA/CCA 0.84 1.15 VERT.ART Antegrade Antegrade There is minimal atherosclerotic disease involving the bilateral carotid arteries. Impression: There is no grayscale or Doppler evidence of significant vascular stenosis. Dictated by: Dictated on workstation # [id number]
--- NOTE | 2018-09-21 12:33 | Diagnostic Imaging Report ---
EXAMINATION: Digital mammogram INDICATION: Bilateral screening with 3D tomosynthesis with cad. This study was compared to prior exams of 08/07/2015, 08/03/2014. At this time there are no current complaints. The current study was also evaluated with a Computer Aided Detection (CAD) system. FINDINGS: The fibroglandular tissue in both breasts is heterogeneously dense. This does limit the sensitivity of this exam. Overall, there does not appear to have been any significant change when compared to the prior study. No primary or secondary sign of malignancy is noted. IMPRESSION: There is no radiographic evidence for malignancy. ACR BI-RADS Category 1: Negative. Result letter will be mailed to the patient. Note: At least 10% of breast cancer is not imaged by mammography. Dictated by: Dictated on workstation # [id number]
== END ==
LOC: RAD 14:11
PROVIDERS: ATTEND Family Medicine
DX: Z12.31 Encounter for screening mammogram for malignant neoplasm of breast (principal); I65.29 Occlusion and stenosis of unspecified carotid artery
CPT/HCPCS: 77067; 93880

== ENCOUNTER → 2018-10-19 | Outpatient (CLI) | payer MEDICARE, OTHER ==
--- NOTE | 2018-10-19 16:05 | Diagnostic Imaging Report ---
INDICATION: Postmenopausal state, osteopenia without current fracture. COMPARISON: August 04, 2013. FINDINGS: AP Spine L1-L4: [BMD (g/cm2): 1.003] [T-Score: -1.6] [Z-Score: 0.5] [BMD Previous: 0.907] [BMD % Change: 10.6] LT Hip Neck: [BMD (g/cm2): 0.776] [T-Score: -1.9] [Z-Score: 0.4] LT Hip Total: [BMD (g/cm2):0.855] [T-Score:-1.2] [Z-Score: 1.0] [BMD Previous: 0.869] [BMD % Change: -1.6] RT Hip Neck: [BMD (g/cm2):0.730] [T-Score:-2.2] [Z-Score:0.1] RT Hip Total: [BMD (g/cm2):0.829] [T-score:-1.4] [Z-Score:0.7] [BMD Previous:0.865] [BMD % Change:-4.2] *Indicates significant change from prior examination based on 95% confidence level. World Health Organization criteria for BMD interpretation classify patients as Normal (T-score at or above -1.0), Osteopenic (T-score between -1.0 and -2.5) or Osteoporotic (T-score at or below -2.5). LIMITATIONS AND MODIFICATION: None. FRACTURE RISK (FRAX SCORE): The ten year probability of (%): Major Osteoporotic Fracture: [15.2] Hip Fracture: [5.0] IMPRESSION: 1. Osteopenia (Low bone mass). 2. No significant change in bone mineral density since prior examination. 3. See below National Osteoporosis Foundation guidelines on when to potentially initiate pharmacologic therapy. Based on the National Osteoporosis Foundation Guidelines, pharmacologic treatment should be initiated in any of the following, unless clinical conditions suggest otherwise: * Any patient with prior fragility fracture of the hip or vertebrae. A spine fracture indicates 5X risk for subsequent spine fracture and 2X risk for subsequent hip fracture. * Osteoporosis (T-score <-2.5). * Postmenopausal women and men age 50 and older with low bone mass/osteopenia (T-score between -1.0 and -2.5) by DXA and 10-year major osteoporotic fracture greater than 20% or a 10-year probability of hip fracture greater than 3%. These fracture risks are supplied above in the FRAX score, if applicable. * Clinician judgement and/or patient preferences may indicate treatment for people with 10-year fracture probabilities above or below these levels. Dictated by: Dictated on workstation # [id number]
== END ==
LOC: RAD 09:32
PROVIDERS: ATTEND Family Medicine
DX: M85.80 Other specified disorders of bone density and structure, unspecified site (principal); Z78.0 Asymptomatic menopausal state
CPT/HCPCS: 77080

== ENCOUNTER 2019-09-29 08:58 | Outpatient (RCR) | payer MEDICARE, OTHER | END 2019-12-28 | disposition home or self-care (01) | LOC: CARD 08:58 | PROVIDERS: ATTEND Internal Medicine Interventional Cardiology | DX: R00.2 Palpitations (principal) ==

== ENCOUNTER → 2019-10-31 | Outpatient (CLI) | payer MEDICARE, OTHER ==
--- NOTE | 2019-10-31 11:03 | Diagnostic Imaging Report ---
INDICATION: Routine screening. Comparison is made with prior mammogram 09/20/2018 and 08/07/2015. 2-D and 3-D bilateral screening mammography was performed with CAD. Both breasts are heterogeneously dense, limiting the sensitivity of mammography. Benign calcifications are scattered throughout both breasts. There is a density in the upper right breast axillary tail region on the MLO view with some questionable architectural distortion. No definite corresponding density is seen on the cc view. No malignant appearing microcalcifications are seen. IMPRESSION: BI-RADS 0. A right breast density axillary tail. Additional views including spot compression views, ML views as well as an exaggerated CC view would be recommended for further Now. ACR BI-RADS Category 0: Incomplete. (Needs additional imaging evaluation). Result letter will be mailed to the patient. Note: At least 10% of breast cancer is not imaged by mammography. Dictated by: Dictated on workstation # [id number]
== END ==
LOC: RAD 08:12
PROVIDERS: ATTEND Family Medicine
DX: Z12.31 Encounter for screening mammogram for malignant neoplasm of breast (principal); R92.8 Other abnormal and inconclusive findings on diagnostic imaging of breast
CPT/HCPCS: 77063; 77067

== ENCOUNTER → 2019-11-03 | Outpatient (CLI) | payer MEDICARE, OTHER ==
--- NOTE | 2019-11-03 13:01 | Diagnostic Imaging Report ---
INDICATION: Right breast density. This study was performed for further evaluation. TECHNIQUE: Unilateral right 2D and 3D diagnostic mammography was performed with CAD. This includes spot compression exaggerated CC and ML views as well as conventional 90 degree lateral view and conventional exaggerated CC view. FINDINGS: There is a persistent slightly irregular density in the upper and outer right breast posteriorly approximately 10 cm from the nipple. Further evaluation of this area with ultrasound is recommended. No suspicious microcalcifications are seen. IMPRESSION: There is a persistent irregular density in the upper outer right breast at posterior depth. Further evaluation with ultrasound is recommended and will be performed today. ACR BI-RADS Category 0: Incomplete. (Needs additional imaging evaluation). Result letter will be mailed to the patient. Note: At least 10% of breast cancer is not imaged by mammography. Dictated by: Dictated on workstation # [id number]
--- NOTE | 2019-11-03 13:36 | Diagnostic Imaging Report ---
INDICATION: Right breast density. COMPARISON: Correlation is made with the diagnostic mammogram from earlier today and the screening mammogram from 10/31/2019. FINDINGS: Sonographic interrogation of the upper outer right breast was performed. There is a hypoechoic nodule at the 10 o'clock location 9 cm from the nipple measuring 7 mm x 7 mm x 7 mm. This does demonstrate some posterior acoustic shadowing. No significant internal vascularity is seen. No enlarged right axillary lymph nodes are detected. IMPRESSION: There is a 7 mm solid hypoechoic nodule at the 10 o'clock location of the right breast 9 cm from the nipple. This likely accounts for the mammographic density. This is concerning for a small breast neoplasm and tissue sampling is recommended. This would be amenable to ultrasound-guided core biopsy. ACR BI-RADS Category 4: Suspicious abnormality. Dictated by: Dictated on workstation # [id number]
== END ==
LOC: RAD 12:31
PROVIDERS: ATTEND Nurse Practitioner Family
DX: N63.10 Unspecified lump in the right breast, unspecified quadrant (principal)
CPT/HCPCS: 76642; 77065; G0279

== ENCOUNTER → 2019-11-29 | Outpatient (CLI) | payer MEDICARE, OTHER ==
--- NOTE | 2019-11-29 15:11 | Diagnostic Imaging Report ---
INDICATION: Right breast carcinoma, initial staging. Serum blood glucose level at the time of injection is 113 mg/dL. The patient was administered 15.5 mCi F18 FDG intravenously in the left antecubital location and pet imaging was performed from the top of the skull to mid thighs. Noncontrast CT was performed for attenuation correction and anatomic correlation. COMPARISON: No prior imaging is available for comparison. There is symmetric activity throughout the brain. Soft tissues of the neck are unremarkable. No mediastinal or hilar hypermetabolism is identified. No definite pulmonary parenchymal hypermetabolism is identified. There is physiologic activity throughout the gastrointestinal and genitourinary tracts of the abdomen and pelvis. No suspicious hypermetabolism is detected. IMPRESSION: Unremarkable PET/CT study. No suspicious regions of hypermetabolism are identified to suggest metastatic disease. Dictated by: Dictated on workstation # [id number]
== END ==
LOC: RAD 11:46
PROVIDERS: ATTEND Nurse Practitioner Adult Health
DX: Z01.89 Encounter for other specified special examinations (principal); C50.911 Malignant neoplasm of unspecified site of right female breast
CPT/HCPCS: 78815; A9552

== ENCOUNTER → 2019-12-12 | Outpatient (CLI) | payer MEDICARE, OTHER ==
--- NOTE | 2019-12-12 13:52 | Diagnostic Imaging Report ---
PROCEDURE: US carotid duplex, bilateral. TECHNIQUE: Multiple real-time grayscale images were obtained over the carotid arteries in various projections, bilaterally. Additional spectral analysis and color Doppler duplex images were also obtained. INDICATION: TIA. FINDINGS: There are no focally elevated velocities in either internal carotid artery. The ICA/CCA ratios are within normal limits, bilaterally. There is antegrade flow in the vertebral arteries, bilaterally. Grayscale images demonstrate minimal carotid plaque, bilaterally. IMPRESSION: Minimal bilateral carotid plaque however spectral analysis shows no evidence of a hemodynamically significant stenosis in either internal carotid artery. Parameters based on the consensus panel Jacinto-Scale and Doppler ultrasound criteria published February 2003, Radiology, Volume 229. DOPPLER (peak systolic velocity M/S Right Left CCA .86 .86 ICA Proximal .68 .73 ICA Mid .70 .90 ICA Distal .71 .94 RATIO .83 1.1 ECA .53 .73 VERT .51 .61 Dictated by: Dictated on workstation # [id number]
== END ==
LOC: RAD 12:15
PROVIDERS: ATTEND Internal Medicine Interventional Cardiology
DX: I08.0 Rheumatic disorders of both mitral and aortic valves (principal); G45.9 Transient cerebral ischemic attack, unspecified; C50.919 Malignant neoplasm of unspecified site of unspecified female breast
CPT/HCPCS: 93306; 93880

== ENCOUNTER 2020-01-02 08:47 | Outpatient (RCR) | payer MEDICARE, OTHER ==
[2020-01-02 09:06] LABS: BASOPHILS % (AUTO) 1 % (0-10); EOSINOPHILS # (AUTO) 0.2 10^3/uL (0.0-0.3); EOSINOPHILS % (AUTO) 5 % (0-10); HEMATOCRIT 40 % (35-52); HEMOGLOBIN 13.1 G/DL (11.5-16.0); LYMPHOCYTES # (AUTO) 1.6 X 10^3 (1.0-4.0); LYMPHOCYTES % (AUTO) 44 % (12-44); MEAN CORPUSCULAR HEMOGLOBIN 31 PG (25-34); MEAN CORPUSCULAR HGB CONC 33 G/DL (32-36); MEAN CORPUSCULAR VOLUME 94 FL (80-99); MEAN PLATELET VOLUME 9.9 FL (7.4-10.4); MONOCYTES # (AUTO) 0.5 X 10^3 (0.0-1.0); MONOCYTES % (AUTO) 14 % (0-12); NEUTROPHILS # (AUTO) 1.3 X 10^3 (1.8-7.8); NEUTROPHILS % (AUTO) 36 % (42-75); PLATELET COUNT 234 10^3/uL (130-400); WHITE BLOOD COUNT 3.7 10^3/uL (4.3-11.0)
[2020-01-02 09:23] LABS: ALANINE AMINOTRANSFERASE 15 U/L (0-55); ALBUMIN 4.1 GM/DL (3.2-4.5); ALKALINE PHOSPHATASE 72 U/L (40-136); BILIRUBIN,TOTAL 0.5 MG/DL (0.1-1.0); BUN/CREATININE RATIO 18; CALCIUM 8.8 MG/DL (8.5-10.1); CARBON DIOXIDE 24 MMOL/L (21-32); CHLORIDE 104 MMOL/L (98-107); GFR ESTIMATED > 60; GLUCOSE 72 MG/DL (70-105); POTASSIUM 3.9 MMOL/L (3.6-5.0); SODIUM 138 MMOL/L (135-145); TOTAL PROTEIN 6.7 GM/DL (6.4-8.2)
== END 2020-02-08 | disposition home or self-care (01) ==
LOC: ONC 08:47
PROVIDERS: ATTEND Internal Medicine Hematology & Oncology
DX: C50.411 Malignant neoplasm of upper-outer quadrant of right female breast (principal)
CPT/HCPCS: 80053; 85025; 99213

== ENCOUNTER → 2020-02-15 | Outpatient (CLI) | payer MEDICARE, OTHER ==
--- NOTE | 2020-02-15 13:28 | Diagnostic Imaging Report ---
INDICATION: Right breast carcinoma. This study is performed for followup. COMPARISON: 10/31/2019 and 09/20/2018. TECHNIQUE: Unilateral right 2D and 3D diagnostic mammography was performed with CAD. FINDINGS: The right breast is heterogeneously dense, limiting the sensitivity of mammography. Biopsy changes in the upper outer right breast are noted with a marker clip in place. There is residual soft tissue at the biopsy site. It is uncertain if this residual soft tissue represents breast malignancy versus post biopsy changes. There are scattered benign calcifications throughout the right breast. No malignant appearing microcalcifications are seen. IMPRESSION: Post biopsy changes in the upper outer right breast, as described above. Continued followup is recommended. The patient is scheduled to undergo right breast ultrasound today. ACR BI-RADS Category 0: Incomplete. (Needs additional imaging evaluation). Result letter will be mailed to the patient. Note: At least 10% of breast cancer is not imaged by mammography. Dictated by: Dictated on workstation # [id number]
--- NOTE | 2020-02-15 14:12 | Diagnostic Imaging Report ---
INDICATION: Right breast carcinoma. Patient presents for followup. COMPARISON: Correlation is made with the prior right breast ultrasound from 11/03/2019 as well as the diagnostic mammogram performed earlier today. FINDINGS: Sonography interrogation of the upper outer right breast was performed. There is a hypoechoic nodule at the 10 o'clock location 9 cm from the nipple measuring 7 mm x 3 mm x 7 mm. Adjacent to this, there is a small fluid collection containing the marker clip, consistent with a small hematoma and post biopsy changes. No new mass is seen. IMPRESSION: Stable hypoechoic mass at the 10 o'clock location of the right breast 9 cm from the nipple when compared with the exam from 11/03/2019. Post biopsy changes are noted. ACR BI-RADS Category 6: Known biopsy proven malignancy. Result letter will be mailed to the patient. Note: At least 10% of breast cancer is not imaged by mammography. Dictated by: Dictated on workstation # [id number]
== END ==
LOC: RAD 12:45
PROVIDERS: ATTEND Internal Medicine Hematology & Oncology
DX: C50.411 Malignant neoplasm of upper-outer quadrant of right female breast (principal)
CPT/HCPCS: 76642; 77065; G0279

== ENCOUNTER 2020-02-20 08:48 | Outpatient (RCR) | payer MEDICARE, OTHER ==
[2020-02-20 09:07] LABS: BASOPHILS % (AUTO) 1 % (0-10); EOSINOPHILS # (AUTO) 0.2 10^3/uL (0.0-0.3); EOSINOPHILS % (AUTO) 5 % (0-10); HEMATOCRIT 39 % (35-52); HEMOGLOBIN 12.6 g/dL (11.5-16.0); LYMPHOCYTES # (AUTO) 1.7 10^3/uL (1.0-4.0); LYMPHOCYTES % (AUTO) 43 % (12-44); MEAN CORPUSCULAR HEMOGLOBIN 31 pg (25-34); MEAN CORPUSCULAR HGB CONC 33 g/dL (32-36); MEAN CORPUSCULAR VOLUME 96 fL (80-99); MEAN PLATELET VOLUME 10.3 fL (9.0-12.2); MONOCYTES # (AUTO) 0.4 10^3/uL (0.0-1.0); MONOCYTES % (AUTO) 10 % (0-12); NEUTROPHILS # (AUTO) 1.6 10^3/uL (1.8-7.8); NEUTROPHILS % (AUTO) 41 % (42-75); PLATELET COUNT 225 10^3/uL (130-400); WHITE BLOOD COUNT 3.9 10^3/uL (4.3-11.0)
[2020-02-20 09:25] LABS: ALANINE AMINOTRANSFERASE 18 U/L (0-55); ALBUMIN 4.1 GM/DL (3.2-4.5); ALKALINE PHOSPHATASE 75 U/L (40-136); BILIRUBIN,TOTAL 0.5 MG/DL (0.1-1.0); BUN/CREATININE RATIO 15; CALCIUM 8.9 MG/DL (8.5-10.1); CARBON DIOXIDE 25 MMOL/L (21-32); CHLORIDE 104 MMOL/L (98-107); CHOLESTEROL 240 MG/DL (< 200); GFR ESTIMATED > 60; GLUCOSE 90 MG/DL (70-105); HDL CHOLESTEROL 59 MG/DL (40-60); POTASSIUM 3.9 MMOL/L (3.6-5.0); SODIUM 139 MMOL/L (135-145); TOTAL PROTEIN 6.7 GM/DL (6.4-8.2); TRIGLYCERIDES 131 MG/DL (<150); VLDL CHOLESTEROL 26 MG/DL (5-40)
== END 2020-05-09 16:44 | disposition home or self-care (01) ==
LOC: ONC 08:48
PROVIDERS: ATTEND Internal Medicine Hematology & Oncology
DX: C50.411 Malignant neoplasm of upper-outer quadrant of right female breast (principal); Z80.9 Family history of malignant neoplasm, unspecified
CPT/HCPCS: 80053; 80061; 85025; G0463; 99213

== ENCOUNTER → 2020-05-14 | Outpatient (CLI) | payer MEDICARE, OTHER ==
[~2020-05-14] MED LIST changes: +ANAS1TAB50 PO; +ASPI-1238 PO
[2020-05-14 09:02] LABS: BASOPHILS % (AUTO) 0 % (0-10); EOSINOPHILS # (AUTO) 0.1 10^3/uL (0.0-0.3); EOSINOPHILS % (AUTO) 2 % (0-10); HEMATOCRIT 40 % (35-52); HEMOGLOBIN 12.9 g/dL (11.5-16.0); LYMPHOCYTES # (AUTO) 1.4 10^3/uL (1.0-4.0); LYMPHOCYTES % (AUTO) 49 % (12-44); MEAN CORPUSCULAR HEMOGLOBIN 31 pg (25-34); MEAN CORPUSCULAR HGB CONC 32 g/dL (32-36); MEAN CORPUSCULAR VOLUME 97 fL (80-99); MEAN PLATELET VOLUME 10.2 fL (9.0-12.2); MONOCYTES # (AUTO) 0.4 10^3/uL (0.0-1.0); MONOCYTES % (AUTO) 15 % (0-12); NEUTROPHILS % (AUTO) 34 % (42-75); PLATELET COUNT 181 10^3/uL (130-400)
[2020-05-14 09:20] LABS: ALANINE AMINOTRANSFERASE 24 U/L (0-55); ALKALINE PHOSPHATASE 95 U/L (40-136); BILIRUBIN,TOTAL 0.3 MG/DL (0.1-1.0); BUN/CREATININE RATIO 12; CARBON DIOXIDE 25 MMOL/L (21-32); CHLORIDE 102 MMOL/L (98-107); CHOLESTEROL 168 MG/DL (< 200); CREATININE SERUM 0.82 MG/DL (0.60-1.30); GFR ESTIMATED > 60; GLUCOSE 93 MG/DL (70-105); HDL CHOLESTEROL 65 MG/DL (40-60); SODIUM 138 MMOL/L (135-145); TOTAL PROTEIN 6.7 GM/DL (6.4-8.2); TRIGLYCERIDES 109 MG/DL (<150); VLDL CHOLESTEROL 22 MG/DL (5-40)
== END ==
LOC: ONC 08:47
PROVIDERS: ATTEND Internal Medicine Hematology & Oncology
DX: D05.11 Intraductal carcinoma in situ of right breast (principal); E78.5 Hyperlipidemia, unspecified; C50.419 Malignant neoplasm of upper-outer quadrant of unspecified female breast; Z79.02 Long term (current) use of antithrombotics/antiplatelets
CPT/HCPCS: 80053; 80061; 85025; G0463; 99213

== ENCOUNTER 2020-06-05 05:35 | Outpatient (RCR) | payer MEDICARE, OTHER ==
[~2020-06-05] VITALS: Ht 157.5 cm; Wt 65.9 kg
[2020-06-07] MEDS ORDERED: ACHD5005 PO (11:07)
[2020-06-07] MEDS ORDERED: DOCU-143 PO (11:07)
== END 2020-06-05 14:15 | disposition home or self-care (01) ==
LOC: PREOP 05:35
PROVIDERS: ATTEND Surgery
DX: Z01.812 Encounter for preprocedural laboratory examination (principal); C50.911 Malignant neoplasm of unspecified site of right female breast; Z20.822 Contact with and (suspected) exposure to COVID-19
CPT/HCPCS: 87635

== ENCOUNTER 2020-06-07 06:36 | Day surgery (SDC) | payer MEDICARE, OTHER ==
[~2020-06-07] VITALS: Ht 157 cm; Wt 65.9 kg
[2020-06-07] VITALS (11 sets, daily range): BP systolic 117–144; BP diastolic 51–85
[2020-06-07] MEDS ORDERED: ceFAZolin INJECTION 1,000 MG in WATER (STERILE) FOR INJECTION 10 ML IV ONE (07:15)
[2020-06-07] MEDS ORDERED: LACTATED RINGERS 1,000 ML IV PRN (07:15)
[2020-06-07] MEDS ORDERED: ceFAZolin INJECTION 0 MG ONE (07:19)
[2020-06-07] MEDS ORDERED: WATER (STERILE) FOR INJECTION 10 ML ONE (07:20)
[2020-06-07] MEDS ORDERED: ceFAZolin INJECTION 1,000 MG ONE (07:20)
[2020-06-07] MEDS ORDERED: CATHETER FLUSH 10 ML SYR IV PRN (07:30)
--- NOTE | 2020-06-07 07:52 | Progress Note-Pre Operative ---
Pre-Operative Progress Note H&P Reviewed The H&P was reviewed, patient examined and no changes noted. Date Seen by Provider: Jun 07, 2020 Time Seen by Provider: 07:52 Date H&P Reviewed: Jun 07, 2020 Time H&P Reviewed: 07:52 Pre-Operative Diagnosis: invasive ductal carcinoma right breast DAVE WARREN DO Jun 07, 2020 07:52
[2020-06-07] MEDS ORDERED: LIDOCAINE 1% INJ 20 ML 20 ML VIAL INJ ONE (08:15)
[2020-06-07] MEDS ORDERED: METHYLENE BLUE 0.5% (PROVAYBLUE) 50 mg/10 ml vial IV ONE (08:43)
[2020-06-07] MEDS ORDERED: LIDOCAINE/EPI 1%-1:100,000 (XYLOCAINE) 50 ML ONE (08:44)
[2020-06-07] MEDS ORDERED: ONDANSETRON 4 MG/2 ML (SDV) Z0FRAN ONE (09:08)
[2020-06-07] MEDS ORDERED: SEVOFLURANE (ULTANE) 15 ML INHAL SOLN ONE (09:08)
[2020-06-07] MEDS ORDERED: LIDOCAINE PF 2% 5 ML (XYLOCAINE) VIAL ONE (09:08)
[2020-06-07] MEDS ORDERED: proPOfol 200 MG/20 ML (DIPRIVAN) VIAL IV ONE (09:08)
[2020-06-07] MEDS ORDERED: fentaNYL INJECTION 100 MCG/2 ML AMP ONE (09:09)
--- NOTE | 2020-06-07 09:15 | Diagnostic Imaging Report ---
Indication: Ductal carcinoma right breast IMPRESSION: 1.1 mCi of technetium 99m sulfur colloid was injected into the periareolar region of the right breast for intraoperative sentinel node localization. Dictated by: Dictated on workstation # [id number]
--- NOTE | 2020-06-07 09:38 | Diagnostic Imaging Report ---
Indication: Right breast mass. Patient presents for ultrasound-guided needle localization. Patient is brought to the ultrasound suite placed on table in the supine position. Skin of the right breast was prepped and draped in usual sterile fashion. Small amount of 1% lidocaine was utilized for local anesthesia. Localizing needle was advanced and placed with its tip adjacent to the hypoechoic nodule at the 10:00 location of the right breast, 9 cm from the nipple. The hookwire was then deployed and the needle was removed. Hookwire was affixed to the patient's skin. Patient tolerated procedure well and left the department in stable condition. IMPRESSION: Successful ultrasound-guided hookwire placement right breast, as described. Dictated by: Dictated on workstation # [id number]
--- NOTE | 2020-06-07 10:00 | Diagnostic Imaging Report ---
Indication: Right breast nodule. Patient status post hookwire placement. Unilateral right 2-D CC and ML mammography was performed status post acquired placement. There is a hookwire noted at the upper outer aspect of the right breast. Patient's known nodule is very difficult to visualize today. The hookwire is located posterior to the marker clip. IMPRESSION: Hookwire placement, as described. Dictated by: Dictated on workstation # [id number]
--- NOTE | 2020-06-07 11:03 | Progress Note-Post Operative ---
Post-Operative Progess Note Surgeon (s)/Warp Knitting Machine Operator (s) Surgeon DAVE WARREN DO Warp Knitting Machine Operator: Dr. Ly to assist in retraction dissection and closure. Pre-Operative Diagnosis invasive ductal carcinoma right breast Post-Operative Diagnosis same Procedure & Operative Findings Date of Procedure 06/07/20 Procedure Performed/Findings right wire localized lumpectomy and sentinel node biopsy Anesthesia Type general Estimated Blood Loss Estimated blood loss (mL): min Specimens/Packing Specimens Removed right wire localized breast ca, right sentinel node DAVE WARREN DO Jun 07, 2020 11:03
[2020-06-07] MEDS ORDERED: ACHD5005 PO (11:07)
[2020-06-07] MEDS ORDERED: DOCU-143 PO (11:07)
--- NOTE | 2020-06-07 11:10 | Discharge Inst-Simple/Standard ---
Discharge Inst-Standard Discharge Medications New, Converted or Re-Newed RX: RX on Chart Patient Instructions/Follow Up Plan of Care/Instructions/FU: 2 weeks Jeny Activity as Tolerated: No Discharge Diet: Regular Diet Other Inst to Patient Follow up Appt: Make appointment for 2 week. Instructions: No lifting greater than 10 pounds. No strenuous activity. May shower in 24 hours, no tub bath or soaking. Use incentive spirometer at home as directed. No Smoking Skin/Wound Care: You have special glue over your incision that will fall off on it's own. Symptoms to Report: Appetite Changes, Extremity Discoloration, Numbness/Tingling, Swelling Increased, Bleeding Excessive, Eyesight Changes, Pain Increased, Urine Color Change, Constipation(Persistent), Fever over 101 degree F, Pain/Pressure in chest, Urinating Difficulty, Cough Up/Vomit Blood, Heart Beat Irreg/Pounding, Pain/Pressure in jaw, Vaginal Bleeding Increase, Cramps in feet or legs, Lightheadedness, Pain/Pressure in shoulder, Diarrhea(Persistent), Memory Changes Suddenly, Questions/Concerns, Weight gain consecutive days, Dizziness/Fainting, Nausea/Vomiting, Shortness of Breath, Weight gain over 2 pounds If questions or concerns contact your physician Or seek help at emergency department. DAVE WARREN DO Jun 07, 2020 11:10
[2020-06-07] MEDS ORDERED: morphine INJ 10 MG/ML 1ML (SYR OR VIAL) ONE (11:12)
[2020-06-07] MEDS ORDERED: ONDANSETRON 4 MG/2 ML (SDV) Z0FRAN IVP PRN (11:15)
[2020-06-07] MEDS ORDERED: morphine INJ 10 MG/ML 1ML (SYR OR VIAL) IVP ONE (11:15)
[2020-06-07] MEDS ORDERED: HYDROcodone/APAP 5 MG/325 MG (LORTAB) TAB PO ONE (12:00)
[2020-06-07] MEDS ORDERED: HYDROcodone/APAP 5 MG/325 MG (LORTAB) TAB ONE (12:02)
--- NOTE | 2020-06-07 14:01 | Diagnostic Imaging Report ---
INDICATION: Status post right lumpectomy. Specimen radiograph was submitted. Within the specimen, the hookwire is present. There is a small nodule located at coordinate E-9. The marker clip is located at coordinate C-10. IMPRESSION: Right breast specimen radiograph, as described. Dictated by: Dictated on workstation # [id number]
--- NOTE | 2020-06-07 15:36 | OPERATIVE REPORT ---
DATE OF SERVICE: 06/07/2020 PREOPERATIVE DIAGNOSIS: Invasive ductal carcinoma, right breast. POSTOPERATIVE DIAGNOSIS: Invasive ductal carcinoma, right breast. PROCEDURE PERFORMED: Right wire localized lumpectomy with right sentinel lymph node biopsy. SURGEON: Dave Fermin DO. ANESTHESIA: General. ESTIMATED BLOOD LOSS: Minimal. COMPLICATIONS: None. GLAZE CARRIER: Dr. Ly, assisted in retraction, dissection and closure. INDICATIONS FOR PROCEDURE: The patient is an 80-year-old female with invasive ductal carcinoma of the right breast upper outer quadrant. She understands risks and benefits of procedure and wished to proceed with procedure. Consent was signed in the chart. DESCRIPTION OF PROCEDURE: The patient was taken to the operating suite. A timeout was done after general anesthetic was performed. The right breast was injected in four locations around the nipple with 1 mL of methylene blue. This was massaged for 10 minutes. The patient was then prepped and draped in a sterile fashion. Incision was made in the right axillary fold incorporating the wire and cautery was used to dissect around the wire circumferentially until the entire wire was removed. The specimen was tagged with two short sutures anteriorly, one long and one short suture superiorly and two long sutures laterally. At this time, the probe was used to locate the sentinel node. In vivo, the node was found to be 579. The node was purple in coloration and this was then grasped and began to be dissected around with cautery until completely removed. Ex vivo number was 575 with a 10-second count was 2351. The probe was then reinserted into the axillary area, no other signal of greater than 10% was present. The wound was then irrigated with copious amounts of sterile water and the subcutaneous tissues were then reapproximated using 3-0 Vicryl and the skin was then closed using 4-0 Monocryl in a running subcuticular fashion. The area was washed and dried and Skin Affix was placed over the incision. The patient tolerated the procedure well without any complications. She was taken to recovery room in stable condition. Job ID: [id number] DocumentID: [id number] Dictated Date: 06/07/2020 14:22:27 Experimental Rocketsled Mechanic Date: 06/07/2020 15:36:35 Dictated By: DAVE FERMIN DO [facility]
--- NOTE | 2020-06-11 11:54 | Anesthesia-General Post-Op ---
General Patient Condition Mental Status/LOC: Same as Preop Cardiovascular: Satisfactory Nausea/Vomiting: Absent Respiratory: Satisfactory Pain: Controlled Complications: Absent Post Op Complications Complications None Follow Up Care/Instructions Patient Instructions None needed. Anesthesia/Patient Condition Patient Condition Post-dated progress note: Patient was seen after the procedure on 06-07 at approximately noon and she was doing well, no complaints, stable vital signs, no apparent adverse anesthesia problems. YESENIA FLOYD DO Jun 11, 2020 11:54
== END 2020-06-07 13:00 ==
LOC: CARD 06:36
PROVIDERS: ATTEND Surgery
DX: C50.911 Malignant neoplasm of unspecified site of right female breast (principal); R13.10 Dysphagia, unspecified; Z79.82 Long term (current) use of aspirin; Z79.899 Other long term (current) drug therapy; Z79.02 Long term (current) use of antithrombotics/antiplatelets; Z88.2 Allergy status to sulfonamides; Z86.73 Personal history of transient ischemic attack (TIA), and cerebral infarction without residual deficits
CPT/HCPCS: 19285; 19301; 38525; 76098; 77065; 78195; 87081; 88307; 88342; A9541; G0279

== ENCOUNTER 2020-09-13 09:55 | Outpatient (RCR) | payer MEDICARE, OTHER ==
[2020-06-21 09:33] LABS: BASOPHILS # (AUTO) 0.1 10^3/uL (0.0-0.1); BASOPHILS % (AUTO) 1 % (0-10); EOSINOPHILS # (AUTO) 0.2 10^3/uL (0.0-0.3); EOSINOPHILS % (AUTO) 6 % (0-10); HEMATOCRIT 40 % (35-52); HEMOGLOBIN 12.8 g/dL (11.5-16.0); LYMPHOCYTES # (AUTO) 1.7 10^3/uL (1.0-4.0); LYMPHOCYTES % (AUTO) 39 % (12-44); MEAN CORPUSCULAR HEMOGLOBIN 31 pg (25-34); MEAN CORPUSCULAR HGB CONC 32 g/dL (32-36); MEAN CORPUSCULAR VOLUME 97 fL (80-99); MEAN PLATELET VOLUME 9.9 fL (9.0-12.2); MONOCYTES # (AUTO) 0.6 10^3/uL (0.0-1.0); MONOCYTES % (AUTO) 13 % (0-12); NEUTROPHILS # (AUTO) 1.8 10^3/uL (1.8-7.8); NEUTROPHILS % (AUTO) 41 % (42-75); PLATELET COUNT 265 10^3/uL (130-400); WHITE BLOOD COUNT 4.4 10^3/uL (4.3-11.0)
[2020-06-21 09:49] LABS: ALANINE AMINOTRANSFERASE 19 U/L (0-55); ALBUMIN 4.1 GM/DL (3.2-4.5); ALKALINE PHOSPHATASE 90 U/L (40-136); BILIRUBIN,TOTAL 0.5 MG/DL (0.1-1.0); BUN/CREATININE RATIO 17; CARBON DIOXIDE 26 MMOL/L (21-32); CHLORIDE 104 MMOL/L (98-107); CREATININE SERUM 0.78 MG/DL (0.60-1.30); GFR ESTIMATED > 60; GLUCOSE 64 MG/DL (70-105); POTASSIUM 4.2 MMOL/L (3.6-5.0); SODIUM 140 MMOL/L (135-145); TOTAL PROTEIN 6.8 GM/DL (6.4-8.2)
[2020-08-30 09:52] LABS: BASOPHILS % (AUTO) 1 % (0-10); EOSINOPHILS # (AUTO) 0.2 10^3/uL (0.0-0.3); EOSINOPHILS % (AUTO) 5 % (0-10); HEMATOCRIT 39 % (35-52); HEMOGLOBIN 12.7 g/dL (11.5-16.0); LYMPHOCYTES # (AUTO) 1.2 10^3/uL (1.0-4.0); LYMPHOCYTES % (AUTO) 35 % (12-44); MEAN CORPUSCULAR HEMOGLOBIN 31 pg (25-34); MEAN CORPUSCULAR HGB CONC 33 g/dL (32-36); MEAN CORPUSCULAR VOLUME 96 fL (80-99); MEAN PLATELET VOLUME 9.6 fL (9.0-12.2); MONOCYTES # (AUTO) 0.6 10^3/uL (0.0-1.0); MONOCYTES % (AUTO) 17 % (0-12); NEUTROPHILS # (AUTO) 1.5 10^3/uL (1.8-7.8); NEUTROPHILS % (AUTO) 42 % (42-75); PLATELET COUNT 220 10^3/uL (130-400); WHITE BLOOD COUNT 3.5 10^3/uL (4.3-11.0)
[2020-08-30 10:15] LABS: ALANINE AMINOTRANSFERASE 22 U/L (0-55); ALKALINE PHOSPHATASE 80 U/L (40-136); BILIRUBIN,TOTAL 0.4 MG/DL (0.1-1.0); BUN/CREATININE RATIO 14; CALCIUM 9.1 MG/DL (8.5-10.1); CARBON DIOXIDE 28 MMOL/L (21-32); CHLORIDE 102 MMOL/L (98-107); CREATININE SERUM 0.85 MG/DL (0.60-1.30); GFR ESTIMATED > 60; GLUCOSE 66 MG/DL (70-105); POTASSIUM 4.3 MMOL/L (3.6-5.0); SODIUM 136 MMOL/L (135-145)
[~2020-09-13 09:55] MED LIST changes: +ACHD5005 PO; +DOCU-143 PO
== END 2020-09-19 | disposition home or self-care (01) ==
LOC: ONC 09:55
PROVIDERS: ATTEND Internal Medicine Hematology & Oncology
DX: C50.411 Malignant neoplasm of upper-outer quadrant of right female breast (principal); E78.5 Hyperlipidemia, unspecified; Z78.0 Asymptomatic menopausal state; Z90.11 Acquired absence of right breast and nipple; Z98.890 Other specified postprocedural states
CPT/HCPCS: 80053; 85025; G0463; 77290; 77295; 77300; 77307; 77334; 77336; 77417; 99204; 99213; 99214

== ENCOUNTER → 2020-11-08 | Outpatient (CLI) | payer MEDICARE, OTHER ==
--- NOTE | 2020-11-08 10:02 | Diagnostic Imaging Report ---
INDICATION: Right breast carcinoma. CORRELATION is made with prior mammograms from 10/31/2019 and 09/20/2018. 2-D and 3-D bilateral diagnostic mammography was performed CAD. Both breasts are heterogeneously dense, limiting the sensitivity of mammography. There are scattered benign calcifications. No mass or malignant-appearing microcalcifications are seen. Axillae are unremarkable. IMPRESSION: BI-RADS Category 2. No mammographic features suspicious for malignancy are identified. ACR BI-RADS Category 2: Benign findings. Result letter will be mailed to the patient. Note: At least 10% of breast cancer is not imaged by mammography. Dictated by: Dictated on workstation # [id number]
== END ==
LOC: RAD 09:15
PROVIDERS: ATTEND Internal Medicine Hematology & Oncology
DX: C50.411 Malignant neoplasm of upper-outer quadrant of right female breast (principal)
CPT/HCPCS: 77066; G0279; 77062

== ENCOUNTER → 2020-11-15 | Outpatient (CLI) | payer MEDICARE, OTHER ==
[2020-11-15 14:58] LABS: BASOPHILS % (AUTO) 1 % (0-10); EOSINOPHILS # (AUTO) 0.1 10^3/uL (0.0-0.3); EOSINOPHILS % (AUTO) 2 % (0-10); HEMATOCRIT 39 % (35-52); HEMOGLOBIN 12.8 g/dL (11.5-16.0); LYMPHOCYTES # (AUTO) 1.6 10^3/uL (1.0-4.0); LYMPHOCYTES % (AUTO) 25 % (12-44); MEAN CORPUSCULAR HEMOGLOBIN 32 pg (25-34); MEAN CORPUSCULAR HGB CONC 33 g/dL (32-36); MEAN CORPUSCULAR VOLUME 96 fL (80-99); MEAN PLATELET VOLUME 9.7 fL (9.0-12.2); MONOCYTES # (AUTO) 0.7 10^3/uL (0.0-1.0); MONOCYTES % (AUTO) 10 % (0-12); NEUTROPHILS # (AUTO) 4.1 10^3/uL (1.8-7.8); NEUTROPHILS % (AUTO) 63 % (42-75); PLATELET COUNT 225 10^3/uL (130-400); WHITE BLOOD COUNT 6.5 10^3/uL (4.3-11.0)
[2020-11-15 15:17] LABS: BILIRUBIN,TOTAL 0.5 MG/DL (0.1-1.0); CALCIUM 9.5 MG/DL (8.5-10.1); CREATININE SERUM 0.89 MG/DL (0.60-1.30); POTASSIUM 4.3 MMOL/L (3.6-5.0)
== END ==
LOC: EDSTATUS 09-20 09:36 → ONC 14:52
PROVIDERS: ATTEND Internal Medicine Hematology & Oncology
DX: C50.411 Malignant neoplasm of upper-outer quadrant of right female breast (principal); E78.00 Pure hypercholesterolemia, unspecified; Z90.11 Acquired absence of right breast and nipple; Z78.0 Asymptomatic menopausal state
CPT/HCPCS: 80053; 85025; G0463; 99213

== ENCOUNTER → 2021-04-17 | Outpatient (CLI) | payer MEDICARE, OTHER | LOC: CARD 13:52 | PROVIDERS: ATTEND Internal Medicine Cardiovascular Disease | DX: I08.0 Rheumatic disorders of both mitral and aortic valves (principal) | CPT/HCPCS: 93306 ==

== ENCOUNTER → 2021-05-02 | Outpatient (CLI) | payer MEDICARE, OTHER ==
[2021-05-02 14:22] LABS: BASOPHILS % (AUTO) 1 % (0-10); EOSINOPHILS # (AUTO) 0.1 10^3/uL (0.0-0.3); EOSINOPHILS % (AUTO) 2 % (0-10); HEMATOCRIT 41 % (35-52); HEMOGLOBIN 13.1 g/dL (11.5-16.0); LYMPHOCYTES # (AUTO) 1.8 10^3/uL (1.0-4.0); LYMPHOCYTES % (AUTO) 29 % (12-44); MEAN CORPUSCULAR HEMOGLOBIN 31 pg (25-34); MEAN CORPUSCULAR HGB CONC 32 g/dL (32-36); MEAN CORPUSCULAR VOLUME 96 fL (80-99); MONOCYTES # (AUTO) 0.7 10^3/uL (0.0-1.0); MONOCYTES % (AUTO) 11 % (0-12); NEUTROPHILS # (AUTO) 3.5 10^3/uL (1.8-7.8); NEUTROPHILS % (AUTO) 57 % (42-75); PLATELET COUNT 228 10^3/uL (130-400); WHITE BLOOD COUNT 6.1 10^3/uL (4.3-11.0)
[2021-05-02 14:40] LABS: ALBUMIN 4.4 GM/DL (3.2-4.5); BILIRUBIN,TOTAL 0.4 MG/DL (0.1-1.0); CALCIUM 9.6 MG/DL (8.5-10.1); CREATININE SERUM 1.1 MG/DL (0.60-1.30); POTASSIUM 4.1 MMOL/L (3.6-5.0); TOTAL PROTEIN 7.4 GM/DL (6.4-8.2)
== END ==
LOC: ONC 14:14
PROVIDERS: ATTEND Internal Medicine Hematology & Oncology
DX: C50.411 Malignant neoplasm of upper-outer quadrant of right female breast (principal); E78.00 Pure hypercholesterolemia, unspecified; Z90.11 Acquired absence of right breast and nipple; Z78.0 Asymptomatic menopausal state
CPT/HCPCS: 80053; 85025

== ENCOUNTER → 2021-11-11 | Outpatient (CLI) | payer MEDICARE, OTHER ==
--- NOTE | 2021-11-11 15:23 | Diagnostic Imaging Report ---
INDICATION: History of breast CA. 24 mCi tech 99 MDP was given IV. The 3 hour delayed whole body imaging. FINDINGS: Anterior and posterior views show good uptake throughout the skeletal system. There is a focal area of uptake which appears to be in the soft tissues in the antecubital region on the left. This is presumably the injection site. Clinical correlation. There is no abnormal uptake seen within the bones that would suggest metastatic disease. IMPRESSION: Single foci of uptake at along the medial aspect of the left humerus likely secondary to injection site. This would be an unusual isolated metastatic lesion from breast cancer. Dictated by: Dictated on workstation # [id number]
== END ==
LOC: CARD 10:51
PROVIDERS: ATTEND Internal Medicine Hematology & Oncology
DX: C50.419 Malignant neoplasm of upper-outer quadrant of unspecified female breast (principal)
CPT/HCPCS: 78306; A9503

== ENCOUNTER → 2021-11-13 | Outpatient (CLI) | payer MEDICARE, OTHER ==
--- NOTE | 2021-11-13 13:16 | Diagnostic Imaging Report ---
Indication: Right breast carcinoma. Comparison is made with prior mammogram from 11/08/2020 and 02/15/2020. 2-D and 3-D bilateral diagnostic mammography was performed with CAD. CAD is utilized. The current study was also evaluated with a Computer Aided Detection (CAD) system. Both breasts are heterogeneously dense, limiting the sensitivity of mammography. The post-therapeutic changes right breast appears stable. No mass or malignant-appearing microcalcifications are seen. There are benign calcifications bilaterally. Axillae are unremarkable. IMPRESSION: BI-RADS Category 2 Stable bilateral mammograms. There are no mammographic features suspicious for malignancy. ACR BI-RADS Category 2: Benign findings. Result letter will be mailed to the patient. Note: At least 10% of breast cancer is not imaged by mammography. Dictated by: Dictated on workstation # [id number]
== END ==
LOC: RAD 12:45
PROVIDERS: ATTEND Internal Medicine Hematology & Oncology
DX: C50.411 Malignant neoplasm of upper-outer quadrant of right female breast (principal)
CPT/HCPCS: 77066; G0279; 77062

== ENCOUNTER → 2021-11-20 | Outpatient (CLI) | payer MEDICARE, OTHER ==
[2021-11-20 14:05] LABS: BASOPHILS % (AUTO) 1 % (0-10); EOSINOPHILS # (AUTO) 0.1 10^3/uL (0.0-0.3); EOSINOPHILS % (AUTO) 2 % (0-10); HEMATOCRIT 39 % (35-52); HEMOGLOBIN 12.6 g/dL (11.5-16.0); LYMPHOCYTES # (AUTO) 1.7 10^3/uL (1.0-4.0); LYMPHOCYTES % (AUTO) 28 % (12-44); MEAN CORPUSCULAR HEMOGLOBIN 31 pg (25-34); MEAN CORPUSCULAR HGB CONC 33 g/dL (32-36); MEAN CORPUSCULAR VOLUME 95 fL (80-99); MONOCYTES # (AUTO) 0.5 10^3/uL (0.0-1.0); MONOCYTES % (AUTO) 8 % (0-12); NEUTROPHILS # (AUTO) 3.7 10^3/uL (1.8-7.8); NEUTROPHILS % (AUTO) 61 % (42-75); PLATELET COUNT 228 10^3/uL (130-400)
[2021-11-20 14:21] LABS: ALBUMIN 4.1 GM/DL (3.2-4.5); BILIRUBIN,TOTAL 0.5 MG/DL (0.1-1.0); CALCIUM 9.7 MG/DL (8.5-10.1); CREATININE SERUM 0.74 MG/DL (0.60-1.30); POTASSIUM 4.2 MMOL/L (3.6-5.0); TOTAL PROTEIN 6.7 GM/DL (6.4-8.2)
== END ==
LOC: ONC 13:53
PROVIDERS: ATTEND Internal Medicine Hematology & Oncology
DX: C50.411 Malignant neoplasm of upper-outer quadrant of right female breast (principal); E78.2 Mixed hyperlipidemia; Z90.11 Acquired absence of right breast and nipple; Z92.3 Personal history of irradiation; Z90.710 Acquired absence of both cervix and uterus
CPT/HCPCS: 36415; 80053; 85025; 99213

== ENCOUNTER → 2022-04-21 | Outpatient (CLI) | payer MEDICARE, OTHER | LOC: CARD 09:30 | PROVIDERS: ATTEND Internal Medicine Cardiovascular Disease | DX: I08.3 Combined rheumatic disorders of mitral, aortic and tricuspid valves (principal) | CPT/HCPCS: 93306 ==

== ENCOUNTER → 2022-06-04 | Outpatient (CLI) | payer MEDICARE, OTHER ==
[2022-06-04 13:43] LABS: BASOPHILS % (AUTO) 1 % (0-10); EOSINOPHILS # (AUTO) 0.1 10^3/uL (0.0-0.3); EOSINOPHILS % (AUTO) 2 % (0-10); HEMATOCRIT 37 % (35-52); HEMOGLOBIN 12.4 g/dL (11.5-16.0); LYMPHOCYTES # (AUTO) 1.6 10^3/uL (1.0-4.0); LYMPHOCYTES % (AUTO) 32 % (12-44); MEAN CORPUSCULAR HEMOGLOBIN 31 pg (25-34); MEAN CORPUSCULAR HGB CONC 33 g/dL (32-36); MEAN CORPUSCULAR VOLUME 93 fL (80-99); MONOCYTES # (AUTO) 0.5 10^3/uL (0.0-1.0); MONOCYTES % (AUTO) 9 % (0-12); NEUTROPHILS # (AUTO) 2.8 10^3/uL (1.8-7.8); NEUTROPHILS % (AUTO) 56 % (42-75); PLATELET COUNT 224 10^3/uL (130-400)
[2022-06-04 14:00] LABS: BILIRUBIN,TOTAL 0.5 MG/DL (0.1-1.0); CALCIUM 9.3 MG/DL (8.5-10.1); CREATININE SERUM 0.84 MG/DL (0.60-1.30); TOTAL PROTEIN 6.7 GM/DL (6.4-8.2)
== END ==
LOC: ONC 13:28
PROVIDERS: ATTEND Internal Medicine Hematology & Oncology
DX: C50.411 Malignant neoplasm of upper-outer quadrant of right female breast (principal); E78.5 Hyperlipidemia, unspecified; Z90.10 Acquired absence of unspecified breast and nipple; Z92.3 Personal history of irradiation; Z78.0 Asymptomatic menopausal state; Z90.710 Acquired absence of both cervix and uterus
CPT/HCPCS: 36415; 80053; 85025

== ENCOUNTER → 2022-11-11 | Outpatient (CLI) | payer MEDICARE, OTHER ==
--- NOTE | 2022-11-11 09:19 | Diagnostic Imaging Report ---
INDICATION: Postmenopausal state. COMPARISON: 10/19/2018. FINDINGS: AP Spine L1-L4: [BMD (g/cm2): 0.971] [T-Score: -1.9] [Z-Score: 0.0] [BMD Previous: 1.006] [BMD % Change: -3.5*] LT Hip Neck: [BMD (g/cm2): 0.716] [T-Score: -2.3] [Z-Score: 0.0] LT Hip Total: [BMD (g/cm2):0.861] [T-Score:-1.2] [Z-Score: 1.0] [BMD Previous: 0.855] [BMD % Change: 0.7] RT Hip Neck: [BMD (g/cm2):0.725] [T-Score:-2.3] [Z-Score:0.1] RT Hip Total: [BMD (g/cm2):0.847] [T-score:-1.3] [Z-Score:0.9] [BMD Previous:0.829] [BMD % Change:2.2] *Indicates significant change from prior examination based on 95% confidence level. World Health Organization criteria for BMD interpretation classify patients as Normal (T-score at or above -1.0), Osteopenic (T-score between -1.0 and -2.5) or Osteoporotic (T-score at or below -2.5). LIMITATIONS AND MODIFICATION: None. FRACTURE RISK (FRAX SCORE): The ten year probability of (%): Major Osteoporotic Fracture: [18.0] Hip Fracture: [6.3] IMPRESSION: 1. Osteopenia (Low bone mass). 2. Bone mineral density within the lumbar spine has significantly decreased since the prior examination. Bone mineral density within the bilateral hips has not significantly changed from prior. 3. See below National Osteoporosis Foundation guidelines on when to potentially initiate pharmacologic therapy. Based on the National Osteoporosis Foundation Guidelines, pharmacologic treatment should be initiated in any of the following, unless clinical conditions suggest otherwise: * Any patient with prior fragility fracture of the hip or vertebrae. A spine fracture indicates 5X risk for subsequent spine fracture and 2X risk for subsequent hip fracture. * Osteoporosis (T-score <-2.5). * Postmenopausal women and men age 50 and older with low bone mass/osteopenia (T-score between -1.0 and -2.5) by DXA and 10-year major osteoporotic fracture greater than 20% or a 10-year probability of hip fracture greater than 3%. These fracture risks are supplied above in the FRAX score, if applicable. * Clinician judgement and/or patient preferences may indicate treatment for people with 10-year fracture probabilities above or below these levels. Dictated by: Dictated on workstation # [id number]
== END ==
LOC: RAD 08:39
PROVIDERS: ATTEND Family Medicine
DX: M85.89 Other specified disorders of bone density and structure, multiple sites (principal); Z78.0 Asymptomatic menopausal state
CPT/HCPCS: 77080

== ENCOUNTER → 2022-12-04 | Outpatient (CLI) | payer MEDICARE, OTHER ==
--- NOTE | 2022-12-04 14:31 | Diagnostic Imaging Report ---
Indication: Routine screening. Comparison is made with prior mammogram from 11/13/2021 and 11/08/2020. 2-D and 3-D bilateral screening mammography was performed with CAD. The current study was also evaluated with a Computer Aided Detection (CAD) system. Both breasts are heterogeneously dense, limiting the sensitivity of mammography. Post-therapeutic changes in the right are stable. There are scattered benign calcifications in both breasts. No mass or malignant-appearing microcalcifications are identified. Axillae are unremarkable. IMPRESSION: BI-RADS Category 2 No mammographic features suspicious for malignancy are identified. ACR BI-RADS Category 2: Benign findings. Result letter will be mailed to the patient. Note: At least 10% of breast cancer is not imaged by mammography. Dictated by: Dictated on workstation # [id number]
== END ==
LOC: RAD 09:53
PROVIDERS: ATTEND Internal Medicine Hematology & Oncology
DX: Z12.31 Encounter for screening mammogram for malignant neoplasm of breast (principal)
CPT/HCPCS: 77063; 77067

== ENCOUNTER → 2022-12-10 | Outpatient (CLI) | payer MEDICARE, OTHER ==
[2022-12-10 13:35] LABS: BASOPHILS % (AUTO) 1 % (0-10); EOSINOPHILS # (AUTO) 0.1 10^3/uL (0.0-0.3); EOSINOPHILS % (AUTO) 3 % (0-10); HEMATOCRIT 39 % (35-52); HEMOGLOBIN 12.6 g/dL (11.5-16.0); LYMPHOCYTES # (AUTO) 1.6 10^3/uL (1.0-4.0); LYMPHOCYTES % (AUTO) 32 % (12-44); MEAN CORPUSCULAR HEMOGLOBIN 32 pg (25-34); MEAN CORPUSCULAR HGB CONC 32 g/dL (32-36); MEAN CORPUSCULAR VOLUME 97 fL (80-99); MEAN PLATELET VOLUME 10.1 fL (9.0-12.2); MONOCYTES # (AUTO) 0.5 10^3/uL (0.0-1.0); MONOCYTES % (AUTO) 9 % (0-12); NEUTROPHILS # (AUTO) 2.7 10^3/uL (1.8-7.8); NEUTROPHILS % (AUTO) 55 % (42-75); PLATELET COUNT 226 10^3/uL (130-400)
[2022-12-10 13:53] LABS: ALBUMIN 4.3 GM/DL (3.2-4.5); BILIRUBIN,TOTAL 0.5 MG/DL (0.1-1.0); CALCIUM 9.7 MG/DL (8.5-10.1); CREATININE SERUM 0.91 MG/DL (0.60-1.30); POTASSIUM 3.9 MMOL/L (3.6-5.0); TOTAL PROTEIN 6.5 GM/DL (6.4-8.2)
== END ==
LOC: ONC 13:01
PROVIDERS: ATTEND Internal Medicine Hematology & Oncology
DX: C50.411 Malignant neoplasm of upper-outer quadrant of right female breast (principal); I34.0 Nonrheumatic mitral (valve) insufficiency; E78.5 Hyperlipidemia, unspecified; Z98.890 Other specified postprocedural states; Z92.3 Personal history of irradiation; Z90.710 Acquired absence of both cervix and uterus
CPT/HCPCS: 80053; 85025; G0463; 36415; 99214